=== PATIENT | female | born 1940 | race Caucasian/White ===

== ENCOUNTER → 2018-03-20 11:31 | Outpatient (REF) | payer MEDICARE, SELFPAY ==
[2018-03-20 14:07] LABS: Alanine Aminotransferase 24 U/L (12-78); Albumin Level 4.2 gm/dL (3.4-5.0); Albumin/Globulin Ratio 1.4 (1.1-1.8); Alkaline Phosphatase 93 U/L (46-116); Anion Gap 19.7 mEq/L (5-15); Aspartate Amino Transferase 19 U/L (15-37); Bilirubin,Total 0.3 mg/dL (0.2-1.0); Blood Urea Nitrogen 21 mg/dL (7-18); Calcium 9.4 mg/dL (8.5-10.1); Carbon Dioxide 21 mmol/L (21.0-32.0); Chloride 100 mmol/L (98-107); Chol/HDL Ratio 3.9 (1-3.5); Cholesterol 179 mg/dL (140-200); Creatinine,Serum 0.58 mg/dL (0.55-1.02); Estimated Glomerular Filt Rate 101 ml/min (>60); GFR (African American) 122 ML/MIN (>60); Globulin 3.1 gm/dl (1.3-3.2); Glucose 105 mg/dL (74-106); HDL Cholesterol 46 mg/dL (29-89); LDL Cholesterol 101 mg/dL (0-130); Potassium 4.7 mmoL/L (3.5-5.1); Sodium 136 mmol/L (136-145); Thyroid Stimulating Hormone 1.31 uIU/ml (0.358-3.740); Total Protein,Serum 7.3 gm/dL (6.4-8.2); Triglycerides 159 mg/dL (30-200); VLDL Cholesterol 32 mg/dL (0-40)
[2018-03-20 14:10] LABS: C-Reactive Protein < 0.2 mg/L (0.0-0.9)
[2018-03-20 14:33] LABS: Basophils % 0.5 % (0.1-2.0); Eosinophils # 0.1 K/mm3 (0.0-0.4); Eosinophils % 1.2 % (0.1-12.0); Hematocrit 43.9 % (37.0-47.0); Hemoglobin 13.6 g/dL (12.2-16.2); Lymphocytes # 0.9 K/mm3 (0.7-4.5); Lymphocytes % 13.2 K/mm3 (10-50); Mean Corpuscular HGB Conc 31.1 g/dL (31.8-35.4); Mean Corpuscular Hemoglobin 27.9 pg (27.0-31.2); Mean Corpuscular Volume 89.7 fl (81-99); Mean Platelet Volume 7.7 fl (7.4-10.4); Monocytes # 0.6 K/mm3 (0.1-1.0); Monocytes % 9.2 % (1.7-9.3); Neutrophils # 5.1 K/mm3 (1.8-7.8); Neutrophils % 75.8 % (37.0-80.0); Platelet Count 333 K/mm3 (142-424); White Blood Count 6.8 K/mm3 (4.8-10.8)
[2018-03-20 16:13] LABS: Erythrocyte Sedimentation Rate 12 mm/hr (0-30)
[2018-03-21 17:01] LABS: Folate 16.8 ng/mL (>3.0); Vitamin B12 947 pg/mL (232-1245)
== END ==
LOC: LAB.CARL 11:31
PROVIDERS: Visit Provider Emergency Medicine
DX: E78.5 Hyperlipidemia, unspecified (principal); Z79.899 Other long term (current) drug therapy
CPT/HCPCS: 80053; 80061; 82607; 82746; 84443; 85025; 85651; 86140

== ENCOUNTER 2018-06-15 14:00 | Outpatient (RCR) | payer MEDICARE, SELFPAY | END 2018-07-16 14:07 | disposition home or self-care (01) | LOC: PT 14:00 | PROVIDERS: Family Provider Family Medicine; PCP Family Medicine; Visit Provider Family Medicine | DX: M25.661 Stiffness of right knee, not elsewhere classified (principal) | CPT/HCPCS: 97110; 97116; 97140; 97163 ==

== ENCOUNTER → 2018-11-03 11:13 | Outpatient (CLI) | payer MEDICARE, SELFPAY ==
[2018-11-03 13:58] LABS: Anion Gap 14.9 mEq/L (5-15); Blood Urea Nitrogen 22 mg/dL (7-18); Calcium 9.1 mg/dL (8.5-10.1); Carbon Dioxide 25 mmol/L (21.0-32.0); Chloride 97 mmol/L (98-107); Creatinine,Serum 0.77 mg/dL (0.55-1.02); Estimated Glomerular Filt Rate 73 ml/min (>60); GFR (African American) 88 ML/MIN (>60); Glucose 116 mg/dL (74-106); Potassium 3.9 mmoL/L (3.5-5.1); Sodium 133 mmol/L (136-145)
[2018-11-03 14:17] LABS: Basophils % 0.4 % (0.1-2.0); Eosinophils # 0.1 K/mm3 (0.0-0.4); Eosinophils % 1.5 % (0.1-12.0); Hematocrit 44.2 % (37.0-47.0); Hemoglobin 13.8 g/dL (12.2-16.2); Lymphocytes # 0.7 K/mm3 (0.7-4.5); Lymphocytes % 12.5 % (10-50); Mean Corpuscular HGB Conc 31.3 g/dL (31.8-35.4); Mean Corpuscular Hemoglobin 27.9 pg (27.0-31.2); Mean Platelet Volume 7.6 fl (7.4-10.4); Monocytes # 0.3 K/mm3 (0.1-1.0); Monocytes % 6.6 % (1.7-9.3); Neutrophils # 4.1 K/mm3 (1.8-7.8); Platelet Count 346 K/mm3 (142-424); Red Blood Count 4.96 M/mm3 (4.20-5.40); Red Cell Distribution Width 14.5 % (11.5-17.5); White Blood Count 5.1 K/mm3 (4.8-10.8)
[2018-11-03 14:44] LABS: Erythrocyte Sedimentation Rate 15 mm/hr (0-30)
[2018-11-03 18:49] LABS: C-Reactive Protein < 0.2 mg/L (0.0-0.9)
== END ==
PROVIDERS: PCP Emergency Medicine; Visit Provider Emergency Medicine
DX: D64.9 Anemia, unspecified (principal)
CPT/HCPCS: 36415; 80048; 85025; 85651; 86140

== ENCOUNTER 2018-11-03 13:00 | Outpatient (RCR) | payer MEDICARE, SELFPAY | END 2018-11-26 07:47 | disposition home or self-care (01) | LOC: PT.CARL 13:00 | PROVIDERS: Visit Provider Emergency Medicine | DX: S82.002A Unspecified fracture of left patella, initial encounter for closed fracture (principal) | CPT/HCPCS: 97014; 97033; 97110; 97112; 97116; 97140; 97163; 97164; G0283 ==

== ENCOUNTER 2019-08-20 13:00 | Outpatient (RCR) | payer MEDICARE, SELFPAY | END 2019-08-20 13:05 | disposition home or self-care (01) | LOC: PT 13:00 | PROVIDERS: PCP Emergency Medicine; Visit Provider Emergency Medicine | DX: M25.661 Stiffness of right knee, not elsewhere classified (principal) | CPT/HCPCS: 97014; 97110; 97112; 97116; 97140; 97163; 97164; 97530; G0283 ==

== ENCOUNTER → 2019-10-12 10:47 | Outpatient (CLI) | payer MEDICARE, SELFPAY ==
[2019-10-12 15:14] LABS: Basophils % 0.6 % (0.1-2.0); Eosinophils # 0.1 K/mm3 (0.0-0.4); Eosinophils % 2.1 % (0.1-12.0); Hemoglobin 12.9 g/dL (12.2-16.2); Lymphocytes # 0.7 K/mm3 (0.7-4.5); Mean Corpuscular HGB Conc 32.3 g/dL (31.8-35.4); Mean Corpuscular Hemoglobin 29.1 pg (27.0-31.2); Mean Corpuscular Volume 90.2 fl (81-99); Mean Platelet Volume 8.2 fl (7.4-10.4); Monocytes # 0.3 K/mm3 (0.1-1.0); Monocytes % 7.4 % (1.7-9.3); Neutrophils # 3.1 K/mm3 (1.8-7.8); Neutrophils % 74.1 % (37.0-80.0); Platelet Count 317 K/mm3 (142-424); Red Blood Count 4.43 M/mm3 (4.20-5.40); Red Cell Distribution Width 12.8 % (11.5-17.5); White Blood Count 4.2 K/mm3 (4.8-10.8)
[2019-10-12 15:45] LABS: Alanine Aminotransferase 14 U/L (12-78); Albumin Level 3.8 gm/dL (3.4-5.0); Albumin/Globulin Ratio 1.5 (1.1-1.8); Alkaline Phosphatase 74 U/L (46-116); Anion Gap 15.4 mEq/L (5-15); Aspartate Amino Transferase 10 U/L (15-37); Bilirubin,Total 0.2 mg/dL (0.2-1.0); Blood Urea Nitrogen 22 mg/dL (7-18); Calcium 8.5 mg/dL (8.5-10.1); Carbon Dioxide 25 mmol/L (21.0-32.0); Chloride 99 mmol/L (98-107); Chol/HDL Ratio 4.3 (1-3.5); Cholesterol 166 mg/dL (140-200); Estimated Glomerular Filt Rate 81 ml/min (>60); GFR (African American) 98 ML/MIN (>60); Globulin 2.6 gm/dl (1.3-3.2); Glucose 70 mg/dL (74-106); HDL Cholesterol 39 mg/dL (29-89); LDL Cholesterol 93 mg/dL (0-130); Potassium 4.4 mmoL/L (3.5-5.1); Sodium 135 mmol/L (136-145); Thyroid Stimulating Hormone 1.06 uIU/ml (0.358-3.740); Total Protein,Serum 6.4 gm/dL (6.4-8.2); Triglycerides 172 mg/dL (30-200); VLDL Cholesterol 34 mg/dL (0-40)
[2019-10-15 06:28] LABS: Folate 13.1 ng/mL (>3.0); Vitamin B12 1192 pg/mL (232-1245)
== END ==
PROVIDERS: PCP Emergency Medicine; Visit Provider Emergency Medicine
DX: E78.5 Hyperlipidemia, unspecified (principal)
CPT/HCPCS: 36415; 80053; 80061; 82607; 82746; 84443; 85025

== ENCOUNTER → 2021-08-10 15:17 | Outpatient (CLI) | payer MEDICARE, SELFPAY ==
[2021-08-10 16:43] LABS: Basophils # 0.1 K/mm3 (0-0.2); Eosinophils # 0.1 K/mm3 (0.0-0.4); Hemoglobin 12.3 g/dL (12.2-16.2); Lymphocytes # 0.9 K/mm3 (0.7-4.5); Lymphocytes % 13.8 % (10-50); Mean Corpuscular HGB Conc 30.8 g/dL (31.8-35.4); Mean Corpuscular Hemoglobin 25.9 pg (27.0-31.2); Mean Platelet Volume 8.6 fl (7.4-10.4); Monocytes # 0.6 K/mm3 (0.1-1.0); Monocytes % 9.1 % (1.7-9.3); Neutrophils # 4.6 K/mm3 (1.8-7.8); Platelet Count 315 K/mm3 (142-424); Red Blood Count 4.75 M/mm3 (4.20-5.40); Red Cell Distribution Width 15.5 % (11.5-17.5); White Blood Count 6.2 K/mm3 (4.8-10.8)
[2021-08-10 18:14] LABS: Alanine Aminotransferase 16 U/L (12-78); Albumin Level 4.3 g/dl (3.5-5.0); Albumin/Globulin Ratio 1.7 (1.1-1.8); Alkaline Phosphatase 65 U/L (38-126); Anion Gap 15.2 mEq/L (5-15); Aspartate Amino Transferase 28 U/L (14-36); Bilirubin,Total 0.3 mg/dl (0.2-1.3); Blood Urea Nitrogen 14 mg/dl (7-17); Calcium 9.2 mg/dl (8.4-10.2); Carbon Dioxide 26 mmol/L (22.0-30.0); Chloride 98 mmol/L (98-107); Chol/HDL Ratio 4.2 (1-3.5); Cholesterol 160 mg/dl (140-200); Estimated Glomerular Filt Rate 118 ml/min (>60); GFR (African American) 143 ML/MIN (>60); Globulin 2.6 g/dL (1.3-3.2); Glucose 85 mg/dl (74-100); HDL Cholesterol 38 mg/dl (40-60); Potassium 5.2 mmoL/L (3.5-5.1); Sodium 134 mmol/L (136-145); Total Protein,Serum 6.9 g/dl (6.3-8.2); Triglycerides 180 mg/dl (30-150); VLDL Cholesterol 36 mg/dL (0-40)
[2021-08-10 18:25] LABS: Direct LDL Cholesterol 85.15 mg/dL (100-129)
[2021-08-11 14:48] LABS: Thyroid Stimulating Hormone 0.63 uIU/mL (0.465-4.68)
== END ==
PROVIDERS: Visit Provider Internal Medicine
DX: M35.01 Sjogren syndrome with keratoconjunctivitis (principal); M15.0 Primary generalized (osteo)arthritis; I10 Essential (primary) hypertension; E78.5 Hyperlipidemia, unspecified; E03.9 Hypothyroidism, unspecified
CPT/HCPCS: 80053; 80061; 84443; 85025

== ENCOUNTER 2021-09-13 13:44 | Emergency (ER) | payer MEDICARE, SELFPAY ==
[2021-09-13 14:00] VITALS: BP 136/88; PULSE 102; RESP 18; O2SAT 95
[2021-09-13 14:01] VITALS: BP 113/69; PULSE 107; RESP 18; TEMP 36.8; O2SAT 96; BMI 25.8
--- NOTE | 2021-09-13 14:08 | XR_ITS ---
PROCEDURE INFORMATION: Exam: XR Right Shoulder Exam date and time: 09/13/2021 2:08 PM Age: 81 years old Clinical indication: Pain and injury or trauma; Fall; Sprain or strain; Shoulder; Right; Additional info: Fell, RT shoulder pain TECHNIQUE: Imaging protocol: XR Right shoulder. Views: 2 or more views. COMPARISON: No relevant prior exams. FINDINGS: Bones/joints: Generalized osteopenia. Moderate narrowing of the glenohumeral joint. Mild spurring of the glenoid rim and humeral neck. Marked narrowing of the subacromial space. Moderate degeneration of the acromioclavicular joint. No fractures or dislocations. Soft tissues: Normal. No swelling or abnormal density. IMPRESSION: 1. No fractures or dislocations. 2. [id number] degenerative osteoarthritis. 3. Narrowing of the subacromial space is associated with rotator cuff pathology. If clinical concern exists, further evaluation with MRI is recommended.
--- NOTE | 2021-09-13 14:09 | XR_ITS ---
PROCEDURE INFORMATION: Exam: XR Left Shoulder Exam date and time: 09/13/2021 2:09 PM Age: 81 years old Clinical indication: Injury or trauma; Fall; Sprain or strain; Shoulder; Left; Additional info: Fell, lt shoulder pain TECHNIQUE: Imaging protocol: XR Left shoulder. Views: 2 or more views. COMPARISON: No relevant prior exams. FINDINGS: Bones/joints: Generalized osteopenia. Moderate narrowing of the glenohumeral joint. Minimal spurring of the glenoid rim and humeral neck. No fractures or dislocations. Soft tissues: Normal. No swelling or abnormal density. IMPRESSION: 1. No fractures or dislocations. 2. Mild degenerative osteoarthritis.
--- NOTE | 2021-09-13 14:10 | XR_ITS ---
PROCEDURE INFORMATION: Exam: XR Right Knee Exam date and time: 09/13/2021 2:10 PM Age: 81 years old Clinical indication: Pain and injury or trauma; Fall; Sprain or strain and swelling (edema); Patella or knee; Right; Additional info: Fell, RT knee pain TECHNIQUE: Imaging protocol: XR Right knee. Views: 1 or 2 views. COMPARISON: No relevant prior exams. FINDINGS: Bones/joints: There is a total knee arthroplasty. The prosthetic components and osseous structures are in anatomic alignment. There is no evidence of loosening or infection of the hardware. No fractures or dislocations. Soft tissues: Normal. No swelling or abnormal density. Vasculature: Mural calcification of the vasculature. IMPRESSION: Total knee arthroplasty in anatomic alignment.
--- NOTE | 2021-09-13 14:14 | PC.NURSE ---
Spoke with sally SCHMIDT for xray
[2021-09-13 14:30] VITALS: BP 122/81; PULSE 102; RESP 18; O2SAT 96
[2021-09-13 15:00] VITALS: BP 130/86; PULSE 94; RESP 18; O2SAT 96
--- NOTE | 2021-09-13 15:45 | HMH.EDGENADL ---
ED Disposition Clinical Impression: Fall Qualifiers: Encounter type: initial encounter Qualified Code(s): W19.XXXA - Unspecified fall, initial encounter Disposition: Home, Self-Care Condition on Discharge: Good Instructions: How to Prevent Falls Additional Instructions: Tylenol as needed for pain. Follow-up with your primary care provider next week. Return for any worsening of condition. Referrals: Erasmo Hadley [Primary Care Provider] - - Critical Care Critical Care Time: No Attestation: On 09/13/21, the high probability of a clinically significant, sudden or life threatening deterioration of the following system(s) required my full and direct attention, intervention and personal management. The time I documented below is in addition to time spent performing reported procedures but includes the following listed in this critical care notation. Medical Decision Making - Roel Inquiry Pt receiving controlled substance: No Vital Signs: 09/13/21 14:00 09/13/21 14:01 09/13/21 14:30 Temperature 98.2 F Temperature Source Oral Pulse Rate 102 H 102 H Pulse Rate [Left Radial] 107 H Respiratory Rate 18 18 18 Blood Pressure 136/88 122/81 Blood Pressure [Left Arm] 113/69 Blood Pressure Mean 99 90 Blood Pressure Mean [Left Arm] 83 Blood Pressure Source [Left Arm] Automatic Cuff Blood Pressure Position [Left Arm] Supine 02 Sat by Pulse Oximetry 95 96 96 Oxygen Delivery Method Room Air 09/13/21 15:00 Temperature Temperature Source Pulse Rate 94 H Pulse Rate [Left Radial] Respiratory Rate 18 Blood Pressure 130/86 Blood Pressure [Left Arm] Blood Pressure Mean 98 Blood Pressure Mean [Left Arm] Blood Pressure Source [Left Arm] Blood Pressure Position [Left Arm] 02 Sat by Pulse Oximetry 96 Oxygen Delivery Method - Lab Data Lab Results 09/13/21 16:30: WBC 9.5, RBC 4.56, Hgb 12.2, Hct 35.5 L, MCV 77.9 L, MCH 26.7 L, MCHC 34.2, RDW 15.3, Plt Count 322, MPV 8.3, Neut % (Auto) 80.5 H, Lymph % (Auto) 9.7 L, [place] % (Auto) 8.4, Eos % (Auto) 1.1, Baso % (Auto) 0.3, Neut # (Auto) 7.6, Lymph # (Auto) 0.9, [place] # (Auto) 0.8, Eos # (Auto) 0.1, Baso # (Auto) 0.0 09/13/21 16:30: Sodium 133 L, Potassium 4.0, Chloride 101, Carbon Dioxide 25, Anion Gap 11.0, BUN 16, Creatinine 0.50 L, Estimated Creat Clear 57, Estimated GFR 118, Est GFR ( Amer) 143, Glucose 113 H, Calcium 9.6, Total Bilirubin 0.3, AST 63 H, ALT 28, Alkaline Phosphatase 76, Total Creatine Kinase 895 H*, Total Protein 7.0, Albumin 4.3, Globulin 2.7, Albumin/Globulin Ratio 1.6 09/13/21 17:13: Urine Color Yellow, Urine Appearance Clear, Urine pH 6.0, Ur Specific [place] 1.025, Urine Protein Negative, Urine Glucose (UA) Negative, Urine Ketones Negative, Urine Blood 1+, Urine Nitrate Negative, Urine Bilirubin Negative, Urine Urobilinogen 0.2, Ur Leukocyte Esterase 1+ A, Urine RBC Occasional, Urine WBC 3-5, Ur Squamous Epith Cells Occasional, Urine Bacteria Trace Result diagrams: 09/13/21 16:30 09/13/21 16:30 Orders (Tests/Meds): ED MEDICATIONS Discontinued Medications Generic Name Dose Route Start Last Admin Trade Name Freq PRN Reason Stop Dose Admin Sodium Chloride 1,000 ml 09/13/21 17:20 09/13/21 17:49 Sodium Chloride 0.9% 1000ml Bag IV 09/13/21 17:21 1,000 ml BOLUS ONE Administration ORDERS Category Date Time Status Urine Culture Stat Micro 09/13/21 17:13 Received - Radiology Data #1 Image(s): Chest, Shoulder (bilateral), Pelvis, Knee Image Reviewed: Yes I have reviewed radiologist's interpretation PROCEDURE INFORMATION: Exam: XR Pelvis Exam date and time: 09/13/2021 3:59 PM Age: 81 years old Clinical indication: Injury or trauma; Fall; Blunt trauma (contusions or hematomas); Bilateral; Pelvic region TECHNIQUE: Imaging protocol: XR pelvis. Views: 1 or 2 view. COMPARISON: [facility] MRI-LOW EXT ANY JOINT W/O-LT 08/17/2015 9:12 AM FINDINGS: Bones/joints: Generalized
--- NOTE | 2021-09-13 15:59 | XR_ITS ---
PROCEDURE INFORMATION: Exam: XR Pelvis Exam date and time: 09/13/2021 3:59 PM Age: 81 years old Clinical indication: Injury or trauma; Fall; Blunt trauma (contusions or hematomas); Bilateral; Pelvic region TECHNIQUE: Imaging protocol: XR pelvis. Views: 1 or 2 view. COMPARISON: [facility] MRI-LOW EXT ANY JOINT W/O-LT 08/17/2015 9:12 AM FINDINGS: Bones/joints: Generalized osteopenia. Moderately severe degenerative changes of the right hip joint. Moderate degenerative changes of the left hip joint. No fractures or dislocations. Soft tissues: Unremarkable. No swelling or abnormal density. IMPRESSION: 1. No fractures or dislocations. 2. Degenerative changes of both hip joints, worse on the right.
--- NOTE | 2021-09-13 15:59 | CT_ITS ---
PROCEDURE INFORMATION: Exam: CT Head Without Contrast Exam date and time: 09/13/2021 3:59 PM Age: 81 years old Clinical indication: Injury or trauma; Fall; Blunt trauma (contusions or hematomas); Consciousness not specified TECHNIQUE: Imaging protocol: Computed tomography of the head without contrast. Radiation optimization: All CT scans at this facility use at least one of these dose optimization techniques: automated exposure control; mA and/or kV adjustment per patient size (includes targeted exams where dose is matched to clinical indication); or iterative reconstruction. COMPARISON: No relevant prior exams. FINDINGS: Brain: No acute changes. No hemorrhage or evidence of acute ischemia. No edema. No mass or mass effect. Patchy decreased attenuation in the periventricular white matter. Prominence of the sulci over both convexities. No abnormal extra-axial fluid collections. Cerebral ventricles: Mild prominence secondary to volume loss. Otherwise, no acute change. Paranasal sinuses: Visualized sinuses are unremarkable. No fluid levels. Mastoid air cells: Visualized mastoid air cells are well aerated. Bones/joints: Unremarkable. No acute fracture. Soft tissues: Unremarkable. IMPRESSION: 1. No acute intracranial changes. 2. Generalized cerebral atrophy. 3. Chronic microvascular ischemia.
--- NOTE | 2021-09-13 15:59 | CT_ITS ---
PROCEDURE INFORMATION: Exam: CT Cervical Spine Without Contrast Exam date and time: 09/13/2021 3:59 PM Age: 81 years old Clinical indication: Injury or trauma; Fall; Blunt trauma TECHNIQUE: Imaging protocol: Computed tomography images of the cervical spine without contrast. Radiation optimization: All CT scans at this facility use at least one of these dose optimization techniques: automated exposure control; mA and/or kV adjustment per patient size (includes targeted exams where dose is matched to clinical indication); or iterative reconstruction. COMPARISON: No relevant prior exams available. FINDINGS: Bones/joints: No fractures. Normal alignment. Hypertrophy and degeneration of the facet joints. Discs/Spinal canal/Neural foramina: Mild narrowing of the C5-C6 disc space. Calcification in the disc annulus. Marked narrowing of the C6-C7 disc space. Associated marginal endplate osteophytes. Lungs: Lung apices are normal. Soft tissues: Unremarkable. IMPRESSION: 1. No fractures or dislocations. 2. Degenerative disc disease. 3. Degenerative facet joint arthropathy.
--- NOTE | 2021-09-13 15:59 | XR_ITS ---
PROCEDURE INFORMATION: Exam: XR Chest Exam date and time: 09/13/2021 3:59 PM Age: 81 years old Clinical indication: Injury or trauma; Fall; Blunt trauma (contusions or hematomas) TECHNIQUE: Imaging protocol: XR of the chest. Views: 4 or more views. COMPARISON: No relevant prior exams. FINDINGS: Lungs: Unremarkable. No consolidation. Pleural spaces: Unremarkable. No pleural effusion. No pneumothorax. Heart/Mediastinum: Unremarkable. No cardiomegaly. Bones/joints: Unremarkable. IMPRESSION: No acute cardiopulmonary disease.
[2021-09-13 16:43] LABS: Basophils % 0.3 % (0.1-2.0); Eosinophils # 0.1 K/mm3 (0.0-0.4); Eosinophils % 1.1 % (0.1-12.0); Hematocrit 35.5 % (37.0-47.0); Hemoglobin 12.2 g/dL (12.2-16.2); Lymphocytes # 0.9 K/mm3 (0.7-4.5); Lymphocytes % 9.7 % (10-50); Mean Corpuscular HGB Conc 34.2 g/dL (31.8-35.4); Mean Corpuscular Hemoglobin 26.7 pg (27.0-31.2); Mean Corpuscular Volume 77.9 fl (81-99); Mean Platelet Volume 8.3 fl (7.4-10.4); Monocytes # 0.8 K/mm3 (0.1-1.0); Monocytes % 8.4 % (1.7-9.3); Neutrophils # 7.6 K/mm3 (1.8-7.8); Neutrophils % 80.5 % (37.0-80.0); Platelet Count 322 K/mm3 (142-424); Red Blood Count 4.56 M/mm3 (4.20-5.40); Red Cell Distribution Width 15.3 % (11.5-17.5); White Blood Count 9.5 K/mm3 (4.8-10.8)
[2021-09-13 16:52] LABS: Alanine Aminotransferase 28 U/L (12-78); Albumin Level 4.3 g/dl (3.5-5.0); Albumin/Globulin Ratio 1.6 (1.1-1.8); Alkaline Phosphatase 76 U/L (38-126); Aspartate Amino Transferase 63 U/L (14-36); Bilirubin,Total 0.3 mg/dl (0.2-1.3); Blood Urea Nitrogen 16 mg/dl (7-17); Calcium 9.6 mg/dl (8.4-10.2); Carbon Dioxide 25 mmol/L (22.0-30.0); Chloride 101 mmol/L (98-107); Creatine Kinase 895 U/L (30-135); Creatinine Clearance Estimated 57 mL/min (50-200); Estimated Glomerular Filt Rate 118 ml/min (>60); GFR (African American) 143 ML/MIN (>60); Globulin 2.7 g/dL (1.3-3.2); Glucose 113 mg/dl (74-100); Sodium 133 mmol/L (136-145)
--- NOTE | 2021-09-13 17:00 | PC.NURSE ---
PT BACK FROM CT
[2021-09-13 17:17] LABS: Microscopic, Urine URINE MICROSCOPIC (MICROSCOPIC)
[2021-09-13 17:40] LABS: Appearance,Urine CLEAR (Clear); Bilirubin,Urine Negative (Negative); Blood, Urine 1+ (Negative); Color,Urine YELLOW (Yellow); Glucose,Urine (UA) Negative (Negative); Ketones,Urine Negative (Negative); Leukocyte Esterase,Urine 1+ (Negative); Nitrate,Urine Negative (Negative); Protein,Urine Negative (Negative); Specific Gravity, Urine 1.025 (1.005-1.030); Urobilinogen,Urine 0.2 EU/dl (0.2)
[2021-09-13 18:02] LABS: Bacteria,Urine Trace /lpf; RBC,Urine Occasional #/hpf (0-3); Squamous Epithelial Cell,Urine Occasional #/hpf (0-5)
[2021-09-13 19:12] VITALS: BP 163/91; PULSE 97; RESP 15; TEMP 36.1; O2SAT 967
== END 2021-09-13 19:28 | disposition home or self-care (01) ==
PROVIDERS: Emergency Provider Emergency Medicine; PCP Internal Medicine
DX: S80.211A Abrasion, right knee, initial encounter (principal); S40.012A Contusion of left shoulder, initial encounter; S40.011A Contusion of right shoulder, initial encounter; S20.213A Contusion of bilateral front wall of thorax, initial encounter; S10.93XA Contusion of unspecified part of neck, initial encounter; W01.0XXA Fall on same level from slipping, tripping and stumbling without subsequent striking against object, initial encounter; Y92.019 Unspecified place in single-family (private) house as the place of occurrence of the external cause; N30.00 Acute cystitis without hematuria
CPT/HCPCS: 70450; 71045; 72125; 72170; 73030; 73560; 80053; 81001; 82550; 85025; 87086; 87088; 87186; 96365; 99282

== ENCOUNTER 2021-09-27 11:02 | Observation (INO) | payer MEDICARE, SELFPAY ==
[2021-09-27] VITALS (16 sets, daily range): BP systolic 113–159; BP diastolic 78–98; PULSE 85–108; RESP 16–23; TEMP 36.4–37; O2SAT 95–100; BMI 25.8; BMI 26.8
--- NOTE | 2021-09-27 11:07 | CT_ITS ---
PROCEDURE INFORMATION: Exam: CT Head Without Contrast Exam date and time: 09/27/2021 11:07 AM Age: 81 years old Clinical indication: Altered mental status/memory loss; Additional info: Reported confusion TECHNIQUE: Imaging protocol: Computed tomography of the head without contrast. Radiation optimization: All CT scans at this facility use at least one of these dose optimization techniques: automated exposure control; mA and/or kV adjustment per patient size (includes targeted exams where dose is matched to clinical indication); or iterative reconstruction. COMPARISON: CT HEAD/BRAIN WO CON 09/13/2021 4:37 PM FINDINGS: Brain: There is no acute intracranial hemorrhage or mass effect. Moderate diffuse volume loss is within the range of normal for patient age. There are small vessel ischemic changes within the periventricular and subcortical white matter, but the normal sherman/white matter delineation is maintained. Cerebral ventricles: Prominence of the ventricular system is commensurate with volume loss. Paranasal sinuses: Visualized sinuses are unremarkable. No fluid levels. Mastoid air cells: Visualized mastoid air cells are well aerated. Bones/joints: Unremarkable. No acute fracture. Soft tissues: Unremarkable. IMPRESSION: No acute hemorrhage or edema.
--- NOTE | 2021-09-27 11:18 | ECG_ITS ---
APPROVED REPORT Exam: Resting ECG HR:97 bpm ECG Measurements Heart Rate 97 AXES IN 174 P 22 QRSd 68 QRS 26 QT 364 T 67 QTc 462 Conclusion Normal sinus rhythm Normal ECG Electronically signed by : Issa Zavaleta MD 09/28/2021 12:36:52
[2021-09-27 11:22] LABS: Basophils % 0.5 % (0.1-2.0); Eosinophils # 0.2 K/mm3 (0.0-0.4); Eosinophils % 2.1 % (0.1-12.0); Hematocrit 37.5 % (37.0-47.0); Hemoglobin 11.9 g/dL (12.2-16.2); Lymphocytes # 0.6 K/mm3 (0.7-4.5); Lymphocytes % 7.8 % (10-50); Mean Corpuscular HGB Conc 31.7 g/dL (31.8-35.4); Mean Corpuscular Hemoglobin 25.7 pg (27.0-31.2); Mean Corpuscular Volume 80.9 fl (81-99); Mean Platelet Volume 7.6 fl (7.4-10.4); Monocytes # 0.5 K/mm3 (0.1-1.0); Monocytes % 5.6 % (1.7-9.3); Neutrophils # 6.9 K/mm3 (1.8-7.8); Neutrophils % 83.9 % (37.0-80.0); Platelet Count 392 K/mm3 (142-424); Red Blood Count 4.64 M/mm3 (4.20-5.40); Red Cell Distribution Width 15.6 % (11.5-17.5); White Blood Count 8.2 K/mm3 (4.8-10.8)
[2021-09-27 11:26] LABS: Alanine Aminotransferase 20 U/L (12-78); Albumin/Globulin Ratio 1.4 (1.1-1.8); Alkaline Phosphatase 76 U/L (38-126); Aspartate Amino Transferase 28 U/L (14-36); Bilirubin,Total 0.2 mg/dl (0.2-1.3); Blood Urea Nitrogen 18 mg/dl (7-17); Calcium 9.2 mg/dl (8.4-10.2); Carbon Dioxide 24 mmol/L (22.0-30.0); Chloride 99 mmol/L (98-107); Creatinine Clearance Estimated 57 mL/min (50-200); Estimated Glomerular Filt Rate 96 ml/min (>60); GFR (African American) 116 ML/MIN (>60); Globulin 2.8 g/dL (1.3-3.2); Glucose 150 mg/dl (74-100); Sodium 133 mmol/L (136-145); Total Protein,Serum 6.8 g/dl (6.3-8.2)
--- NOTE | 2021-09-27 11:29 | HMH.EDGENADL ---
ED Disposition Clinical Impression: Weakness UTI (urinary tract infection) Qualifiers: Urinary tract infection type: acute cystitis Hematuria presence: without hematuria Qualified Code(s): N30.00 - Acute cystitis without hematuria Disposition: Admitted as Observation Condition on Discharge: Fair Referrals: Erasmo Hadley [Primary Care Provider] - - Critical Care Critical Care Time: No Attestation: On 09/27/21, the high probability of a clinically significant, sudden or life threatening deterioration of the following system(s) required my full and direct attention, intervention and personal management. The time I documented below is in addition to time spent performing reported procedures but includes the following listed in this critical care notation. Medical Decision Making - Medical Records Medical records reviewed: Yes: I reviewed the patient's medical records. MR Comment: Reviewed emergency department note from visit on 09/13/2021 for fall. Seen by me. Had an extensive work-up including CT scan of head and cervical spine. Had mildly elevated CPK in the 800s from having laying on the floor. Otherwise work-up unremarkable. Reviewed urine culture result from 09/13/2021. E. coli and Serratia marcescens, both low colony counts. Both sensitive to Levaquin. - Roel Inquiry Pt receiving controlled substance: No Vital Signs: 09/27/21 11:02 09/27/21 11:41 09/27/21 12:30 Temperature 98.6 F Temperature Source Oral Pulse Rate 89 86 86 Pulse Rate [Right] 94 H Respiratory Rate 16 23 17 Blood Pressure 146/84 H 152/78 H 135/81 Blood Pressure [Right Arm] 142/82 H Blood Pressure Mean 110 Blood Pressure Mean [Right Arm] 102 Blood Pressure Source [Right Arm] Automatic Cuff Blood Pressure Position [Right Arm] Sitting 02 Sat by Pulse Oximetry 97 95 96 Oxygen Delivery Method Room Air 09/27/21 13:01 09/27/21 13:30 09/27/21 14:00 Temperature Temperature Source Pulse Rate 85 86 95 H Pulse Rate [Right] Respiratory Rate 17 16 18 Blood Pressure 154/82 H 153/85 H 157/97 H Blood Pressure [Right Arm] Blood Pressure Mean 116 107 117 Blood Pressure Mean [Right Arm] Blood Pressure Source [Right Arm] Blood Pressure Position [Right Arm] 02 Sat by Pulse Oximetry 95 99 98 Oxygen Delivery Method 09/27/21 14:31 09/27/21 15:01 09/27/21 15:30 Temperature Temperature Source Pulse Rate 92 H 90 108 H Pulse Rate [Right] Respiratory Rate 16 18 18 Blood Pressure 123/82 114/81 113/80 Blood Pressure [Right Arm] Blood Pressure Mean 95 92 87 Blood Pressure Mean [Right Arm] Blood Pressure Source [Right Arm] Blood Pressure Position [Right Arm] 02 Sat by Pulse Oximetry 97 97 98 Oxygen Delivery Method 09/27/21 16:00 09/27/21 16:31 Temperature Temperature Source Pulse Rate 102 H 96 H Pulse Rate [Right] Respiratory Rate 16 18 Blood Pressure 154/95 H 154/94 H Blood Pressure [Right Arm] Blood Pressure Mean 105 98 Blood Pressure Mean [Right Arm] Blood Pressure Source [Right Arm] Blood Pressure Position [Right Arm] 02 Sat by Pulse Oximetry 97 100 Oxygen Delivery Method - Lab Data Lab Results 09/27/21 10:45: WBC 8.2, RBC 4.64, Hgb 11.9 L, Hct 37.5, MCV 80.9 L, MCH 25.7 L, MCHC 31.7 L, RDW 15.6, Plt Count 392, MPV 7.6, Neut % (Auto) 83.9 H, Lymph % (Auto) 7.8 L, [place] % (Auto) 5.6, Eos % (Auto) 2.1, Baso % (Auto) 0.5, Neut # (Auto) 6.9, Lymph # (Auto) 0.6 L, [place] # (Auto) 0.5, Eos # (Auto) 0.2, Baso # (Auto) 0.0 09/27/21 10:45: Sodium 133 L, Potassium 4.0, Chloride 99, Carbon Dioxide 24, Anion Gap 14.0, BUN 18 H, Creatinine 0.60, Estimated Creat Clear 57, Estimated GFR 96, Est GFR ( Amer) 116, Glucose 150 H, Calcium 9.2, Total Bilirubin 0.2, AST 28, ALT 20, Alkaline Phosphatase 76, Troponin I < 0.01, Total Protein 6.8, Albumin 4.0, Globulin 2.8, Albumin/Globulin Ratio 1.4 09/27/21 10:45: Total Creatine Kinase 64 09/27/21 13:03: Urine Color Yellow
--- NOTE | 2021-09-27 11:35 | XR_ITS ---
PROCEDURE INFORMATION: Exam: XR Chest Exam date and time: 09/27/2021 11:35 AM Age: 81 years old Clinical indication: Other: Weakness; Additional info: AMS, weakness TECHNIQUE: Imaging protocol: XR of the chest. Views: 1 view. COMPARISON: CR XR CHEST AP 09/13/2021 4:41 PM FINDINGS: Lungs: Unremarkable. No consolidation. Pleural spaces: Unremarkable. No pleural effusion. No pneumothorax. Heart/Mediastinum: Unremarkable. No cardiomegaly. Bones/joints: There is a thoracic dextroscoliosis. IMPRESSION: No acute findings.
[2021-09-27 11:41] LABS: Troponin I < 0.01 ng/ml (0.00-0.034)
[2021-09-27 13:11] LABS: Microscopic, Urine URINE MICROSCOPIC (MICROSCOPIC)
[2021-09-27 13:14] LABS: Appearance,Urine CLEAR (Clear); Bilirubin,Urine Negative (Negative); Blood, Urine 2+ (Negative); Color,Urine YELLOW (Yellow); Glucose,Urine (UA) Negative (Negative); Ketones,Urine Negative (Negative); Leukocyte Esterase,Urine 3+ (Negative); Nitrate,Urine POSITIVE (Negative); Protein,Urine Negative (Negative); Urobilinogen,Urine 0.2 EU/dl (0.2)
[2021-09-27 13:55] LABS: Bacteria,Urine 1+ /lpf; Squamous Epithelial Cell,Urine Occasional #/hpf (0-5); WBC,Urine 20-50 #/hpf (0-3)
[2021-09-27 14:11] LABS: Creatine Kinase 64 U/L (30-135)
[2021-09-27 16:10] LABS: Coronavirus 19, PCR Not Detected (NotDetected); Influenza A, PCR Not Detected (NotDetected); Influenza B, PCR Not Detected (NotDetected)
--- NOTE | 2021-09-27 16:26 | PC.NURSE ---
Called Dr. Zavaleta office. Advised he was in a room and would call us back when he was available.
--- NOTE | 2021-09-27 16:34 | PC.NURSE ---
speaking with Dr. Zavaleta
--- NOTE | 2021-09-27 16:39 | PC.NURSE ---
Notified house of admission
[2021-09-27 17:43] LABS: Troponin I < 0.01 ng/ml (0.00-0.034)
--- NOTE | 2021-09-27 18:30 | PC.NURSE ---
pt arrived to the floor at this time
[2021-09-28 04:00] VITALS: BP 142/84; PULSE 92; RESP 16; TEMP 36.5; O2SAT 95
--- NOTE | 2021-09-28 04:32 | PC.NURSE ---
pt has rested well t/o shift, has remained on room air with O2 sats at 95%, no complaints of pain, voiding per purewick and 2 bowel movements this shift
[2021-09-28 05:08] VITALS: BMI 26.0
--- NOTE | 2021-09-28 07:27 | PC.NURSE ---
pt is poor historian on medications, stated that she takes the medications prescribed to her, that is all she could tell me
--- NOTE | 2021-09-28 07:36 | HMH.PHAVTE ---
[facility] Pharmacy VTE Monitoring - Patient Demographics Admission date: 09/28/21 Report Date: 09/28/21 Time: 07:36 Allergies/Adverse Reactions: Patient Allergies No Known Allergies Allergy (Verified 09/13/21 14:01) Height: 1.78 m Weight: 82.5 kg Patient Problems: Current Active Problems UTI (urinary tract infection) (Acute) Weakness (Acute) - VTE Risk Labs: VTE Related Lab Results Hgb 11.9 g/dL (12.2-16.2) L 09/27/21 10:45 Hct 37.5 % (37.0-47.0) 09/27/21 10:45 Plt Count 392 K/mm3 (142-424) 09/27/21 10:45 BUN 18 mg/dl (7-17) H 09/27/21 10:45 Creatinine 0.60 mg/dl (0.52-1.04) 09/27/21 10:45 Estimated Creat Clear 57 mL/min (50-200) 09/27/21 10:45 Was VTE Risk Assessment Performed: Yes VTE Score: 8 VTE Risk Level: Moderate Risk Clinical Trial Participant: No - Prophylaxis VTE Prophylaxis Ordered?: Yes Types of VTE Prophylaxis: TEDS Knee High
[2021-09-28 08:00] VITALS: BP 145/95; PULSE 97; RESP 18; TEMP 36.4; O2SAT 95; O2SAT 98
--- NOTE | 2021-09-28 09:17 | HMH.HP ---
*Admission Date: 09/27/21 *Chief complaint: Frequent falls, confusion *History of present illness: 81-year-old white female, who has been for the past year and a half, who has limited functional capacity because of a right-sided knee contracture deformity based on her report of an operative injury from knee replacement surgery several years ago in which her quadriceps tendon was cut. She unfortunately is unable to extend her right leg completely and has had frequent falls. A couple of weeks ago she was found to have a complex urinary tract infection with Serratia and E. coli, and unfortunately seems to have not recovered well from this and has had some abdominal pain, confusion and worsening falls. She came to the emergency department yesterday afternoon, continued to have some confusion and inability to walk on her own, and was found to have presence of a urinary tract infection with hematuria, pyuria and abdominal discomfort. Admitted to hospital for intravenous antibiotics, further evaluation of her home safety, etc. [facility] History I have reviewed the patient's past medical history: Yes Medical History: Reports:: Hyperlipidemia, Hypertension Denies:: Cancer, Diabetes Mellitus Type 1, Diabetes Mellitus Type 2, MRSA *Have you ever received a pneumonia vaccine?: No *Have you received a flu vaccine this season?: No Other Medical History: Reports: Arthritis Comment:: Chronic right knee contracture Laterality Cases: Bilateral: Arthroscopy Knee Other Surgeries: Yes: Appendectomy Amputation: No Fractures: No - *Social History Last grade of school completed: Advanced degree Smoking Status: Never smoker Alcohol Intake: never *Occupational Status:: retired *Travel in the last 8 weeks: None Family Hx:: No significant family history Review of Systems - *Neurologic Denies abnormal speech, Denies confusion, Denies dizziness, Denies headache(s), Denies numbness, Denies weakness Meds Home Medications Medication Instructions Recorded Confirmed Type Dexlansoprazole [Dexilant] 60 mg PO DAILY 09/27/21 09/27/21 History Temazepam [Restoril] 15 mg PO HS 09/27/21 09/27/21 History Allergies Allergy/AdvReac Type Severity Reaction Status Date / Time No Known Allergies Allergy Verified 09/13/21 14:01 Exam Vital signs and Labs for Last 24 Hours: Temp Pulse Resp BP Pulse Ox 97.7 F 92 H 16 142/84 H 95 09/28/21 04:00 09/28/21 04:00 09/28/21 04:00 09/28/21 04:00 09/28/21 04:00 Laboratory Results - last 24 hr 09/27/21 10:45: WBC 8.2, RBC 4.64, Hgb 11.9 L, Hct 37.5, MCV 80.9 L, MCH 25.7 L, MCHC 31.7 L, RDW 15.6, Plt Count 392, MPV 7.6, Neut % (Auto) 83.9 H, Lymph % (Auto) 7.8 L, [place] % (Auto) 5.6, Eos % (Auto) 2.1, Baso % (Auto) 0.5, Neut # (Auto) 6.9, Lymph # (Auto) 0.6 L, [place] # (Auto) 0.5, Eos # (Auto) 0.2, Baso # (Auto) 0.0 09/27/21 10:45: Sodium 133 L, Potassium 4.0, Chloride 99, Carbon Dioxide 24, Anion Gap 14.0, BUN 18 H, Creatinine 0.60, Estimated Creat Clear 57, Estimated GFR 96, Est GFR ( Amer) 116, Glucose 150 H, Calcium 9.2, Total Bilirubin 0.2, AST 28, ALT 20, Alkaline Phosphatase 76, Troponin I < 0.01, Total Protein 6.8, Albumin 4.0, Globulin 2.8, Albumin/Globulin Ratio 1.4 09/27/21 10:45: Total Creatine Kinase 64 09/27/21 13:03: Urine Color Yellow, Urine Appearance Clear, Urine pH 6.0, Ur Specific [place] 1.020, Urine Protein Negative, Urine Glucose (UA) Negative, Urine Ketones Negative, Urine Blood 2+, Urine Nitrate Positive, Urine Bilirubin Negative, Urine Urobilinogen 0.2, Ur Leukocyte Esterase 3+ A, Urine RBC 5-10, Urine WBC 20-50, Ur Squamous Epith Cells Occasional, Urine Bacteria 1+ 09/27/21 15:47: SARS-CoV-2 (PCR) Not detected, Influenza A Untype (PCR) Not detected, Influenza Type B (PCR) Not detected 09/27/21 16:48: Troponin I < 0.01 I & O for Last 24 hours: Intake & Output 09/25/21 09/26/21 09/27/21 09/28/21 11:59 11:59 11:59 11:59 Intake Total 933 / 933 Output Total 700 / 700 Ba
--- NOTE | 2021-09-28 09:21 | SW/DCPLANNER ---
Addendum entered by Jemma Mora 10/02/21 07:26: PATIENT HAS BEEN APPROVED TO GO TO [facility] TODAY FOR SKILLED REHAB SERVICES.. Addendum entered by Yuridia Woods 09/28/21 12:00: Patient is agreeable to placement at this time. [facility] has stated that she currently does not have any beds available. Kathleen hutchins/ [facility] is reviewing patient information and stated she could potentially accept this patient tomorrow. I will follow up with patients MD charles and Kathleen ARSHDA. Original Note: I spoke with patients daughter (Manisha) regarding discharge plans once patient is medically stable for discharge. Daughter stated that she has been speaking with her sister regarding placement for her mother: both are agreeable for placement. I explained to daughter that patient must be willing to go to placement: daughters will be speaking with patient this AM regarding placement. Manisha is interested in placement at [facility]: not accepting any patients at this time. [facility] I will follow up with facilities once information is reviewed. Patient is stable for discharge once disposition is solved.
--- NOTE | 2021-09-28 11:46 | HMH.OTEV ---
OT Inpatient Evaluation Rehab OT IP Evaluation Start: 09/28/21 09:15 Freq: ONCE Status: Complete Protocol: [facility]21 [facility] (Rec: 09/28/21 11:46 [facility] [id number]) Rehab OT IP Assessment Subjective History Pt oriented x 3 on arrival. Pt agreeable to engage in therapy evaluation. Pt was admtited on 09/27/21 due to frequent falls and confusion. The following information was copied from PCP history and physical report: 81-year-old white female, who has been for the past year and a half, who has limited functional capacity because of a right-sided knee contracture deformity based on her report of an operative injury from knee replacement surgery several years ago in which her quadriceps tendon was cut. She unfortunately is unable to extend her right leg completely and has had frequent falls. A couple of weeks ago she was found to have a complex urinary tract infection with Serratia and E. coli, and unfortunately seems to have not recovered well from this and has had some abdominal pain, confusion and worsening falls. She came to the emergency department yesterday afternoon , continued to have some confusion and inability to walk on her own, and was found to have presence of a urinary tract infection with hematuria, pyuria and abdominal discomfort. Admitted to hospital for intravenous antibiotics, further evaluation of her home safety, etc. Pt has a past medical history of Hyperlipidemia,
--- NOTE | 2021-09-28 11:47 | HMH.PTEV ---
Physical Therapy Evaluation Rehab PT IP Evaluation Start: 09/28/21 09:15 Freq: ONCE Status: Active Protocol: Document 09/28/21 11:37 [facility] (Rec: 09/28/21 11:46 [facility] [id number]) Subjective/History History History Pt admitted as 81 YO female with UTI and generalized weakness, as well as fall at home out of bed. Subjective Subjective Pt reports RLE (sorenson area) pain d/t chronic LBP and prolonged time in bed since UTI, fall, weakness. Rehab PT IP Eval Objective Appearance Patient Behavior Appropriate Patient Orientation Person,Place,Time,Name,Age, Birthday Difficulty following instructions none Speech Pattern Appropriate Ambulation Patient Able to Ambulate No Balance Sitting Balance Steady, safe Dynamic Sitting Balance Ability Normal Transfers Sit to Stand Bed Transfer Ability Maximum x 2 (75% assist) Pain Right Sorenson Pain Intensity 5 ROM RUE PT ROM Status WFL LUE PT ROM Status WFL LLE PT ROM Status WFL RLE PT ROM Status ABN Abnormal ROM Comment limited right knee AROM secondary to failed TKA MMT RUE PT MMT WFL LUE PT MMT WFL LLE PT MMT WFL RLE PT MMT ABN Abnormal MMT Grade limited (3-/5) Rehab PT IP prob,goals,plan Problems Date of Evaluation: 09/28/21 PT IP Problems Bed Mobility,Transfers,Self care,Safety Rehab Potential Rehab Potential Fair Equipment Needs Assistive Devices Wheelchair Plan PT Intervention Plan Bed Mobility,Transfers,Self care,Safety,Therapeutic Exercise PT Plan Frequency BID Duration LOS Discharge Goals Bed Transfer Ability Maximum x 1 (75% assist) Discharge Plan PT Discharge Plan Pt to D/C to rehab facility or SNF to continue work on strengthening for bed to chair /WC T/F's for improved safety w/return to home. G -code Required No Eval Complexity Eval Charge Codes 44598 - Moderate Complexity PHYSICIAN CERTIFICATI
[2021-09-28 16:00] VITALS: BP 161/85; PULSE 96; RESP 16; TEMP 36.5; O2SAT 93
[2021-09-28 19:55] VITALS: BP 125/84; PULSE 92; RESP 22; TEMP 36.7; O2SAT 94
[2021-09-29 04:00] VITALS: BP 166/81; PULSE 85; RESP 16; TEMP 36.7; O2SAT 94
[2021-09-29 05:03] VITALS: BMI 25.6
[2021-09-29 07:53] VITALS: BP 160/98; PULSE 101; RESP 18; TEMP 36.8; O2SAT 94
[2021-09-29 08:00] VITALS: O2SAT 94
--- NOTE | 2021-09-29 08:35 | P.PN_ITS ---
Internal Medicine - PN: Subj *Date: 09/29/21 *Time: 08:35 Interval history: Patient is pleasant and talkative, alert. I reviewed care management plan with her and she is agreeable. Exam Vital signs and Labs for Last 24 Hours: Temp Pulse Resp BP Pulse Ox 98.2 F 101 H 18 160/98 H 94 L 09/29/21 07:53 09/29/21 07:53 09/29/21 07:53 09/29/21 07:53 09/29/21 07:53 I & O for Last 24 hours: Intake & Output 09/26/21 09/27/21 09/28/21 09/29/21 11:59 11:59 11:59 11:59 Intake Total 1053 / 1053 420 / 420 Output Total 1200 / 1200 1250 / 1250 Balance -147 / -147 -830 / -830 Weight 180 lb 181 lb 14.102 oz 179 lb 3.773 oz Microbiology Reports for the Last 24 Hours: Microbiology 09/27/21 13:03 Urine,Clean Catch Urine Culture - Preliminary Narrative: Heart rate regular, lungs clear. Abdomen soft. Knee exam and lower extremity exam unchanged. She is alert and pleasant. C ranial nerves intact Assessment and Plan (1) Flexion contracture of right knee Status: Acute Category: Medical Code(s): M24.561 - Contracture, right knee (2) Frequent falls Status: Acute Category: Medical Code(s): R29.6 - Repeated falls (3) UTI (urinary tract infection) Status: Acute Qualifiers: Urinary tract infection type: acute cystitis Hematuria presence: without hematuria Qualified Code(s): N30.00 - Acute cystitis without hematuria Category: Medical Code(s): N39.0 - Urinary tract infection, site not specified (4) Fall Status: Acute Qualifiers: Encounter type: initial encounter Qualified Code(s): W19.XXXA - Unspecified fall, initial encounter Category: Medical Code(s): W19.XXXA - Unspecified fall, initial encounter - Assessment and plan all Dx Assessment and Plan for all problems:: Continue current therapy. Await final culture results. Patient may have a bed at skilled care facility today or tomorrow. Transfer when available.
[2021-09-29 15:29] VITALS: BP 109/57; PULSE 90; RESP 16; TEMP 36.8; O2SAT 93
--- NOTE | 2021-09-29 17:15 | PC.NURSE ---
Pt has done fine this shift. Pt has c/o BARRY x1 and has been medicated per MAR. Purwick remains in place, pt is urinating clear, dark yellow urine. Pt has been encouraged to get out of bed and up to chair, but pt refuses. No other acute changes or complaints, will continue to monitor.
[2021-09-29 20:00] VITALS: BP 110/59; PULSE 74; RESP 16; TEMP 36.8; O2SAT 93
--- NOTE | 2021-09-29 21:48 | PC.NURSE ---
Helped brush teeth. Brought 2 warm blankets
[2021-09-30 04:00] VITALS: BP 152/83; PULSE 82; RESP 13; TEMP 37.1; O2SAT 94
[2021-09-30 05:26] VITALS: BMI 26.8
--- NOTE | 2021-09-30 07:04 | PC.NURSE ---
Patient slept through night. VSS. Denies pain. Incontinent of urine, utlizing purewick. Turned q2h as patient allows for pressure reduction. Voices no complaints this shift.
--- NOTE | 2021-09-30 07:19 | HMH.ACPN2 ---
Internal Medicine - PN: Subj *Date: 09/30/21 *Time: 07:19 Interval history: Patient is pleasant, talkative, in good spirits. Had a lot of heartburn yesterday after eating some Japanese food her family brought in, we administered Tums and Pepcid and this is resolved her situation. Exam Vital signs and Labs for Last 24 Hours: Temp Pulse Resp BP Pulse Ox 98.8 F 82 13 152/83 H 94 L 09/30/21 04:00 09/30/21 04:00 09/30/21 04:00 09/30/21 04:00 09/30/21 04:00 I & O for Last 24 hours: Intake & Output 09/27/21 09/28/21 09/29/21 09/30/21 11:59 11:59 11:59 11:59 Intake Total 1053 / 1053 420 / 420 1560 / 1560 Output Total 1200 / 1200 1250 / 1250 2250 / 2250 Balance -147 / -147 -830 / -830 -690 / -690 Weight 180 lb 181 lb 14.102 oz 179 lb 3.773 oz 187 lb 2.759 oz Microbiology Reports for the Last 24 Hours: Microbiology 09/27/21 13:03 Urine,Clean Catch Urine Culture - Preliminary Narrative: Pleasant, talkative, lungs clear, heart rate regular. Abdomen soft, ENT exam clear. Neurologic exam nonfocal except for some weakness. Right leg remains unchanged. Assessment and Plan (1) Flexion contracture of right knee Status: Acute Category: Medical Code(s): M24.561 - Contracture, right knee (2) Frequent falls Status: Acute Category: Medical Code(s): R29.6 - Repeated falls (3) UTI (urinary tract infection) Status: Acute Qualifiers: Urinary tract infection type: acute cystitis Hematuria presence: without hematuria Qualified Code(s): N30.00 - Acute cystitis without hematuria Category: Medical Code(s): N39.0 - Urinary tract infection, site not specified (4) Fall Status: Acute Qualifiers: Encounter type: initial encounter Qualified Code(s): W19.XXXA - Unspecified fall, initial encounter Category: Medical Code(s): W19.XXXA - Unspecified fall, initial encounter - Assessment and plan all Dx Assessment and Plan for all problems:: Overall patient stable. Await urine culture. Await senior care bed availability for transfer for ongoing rehab/long-term care.
[2021-09-30 13:55] VITALS: BP 119/78; PULSE 62; RESP 17; TEMP 37.3; O2SAT 94
[2021-09-30 16:00] VITALS: BP 113/61; PULSE 98; RESP 20; TEMP 36.7; O2SAT 94
--- NOTE | 2021-09-30 18:35 | PC.NURSE ---
Pt has been pleasant and cooperative this shift. A&O X4. Pt has complained of pain X1 and received Tylenol per MAR with favorable results. Pt is on room air with sats. >90%. Lungs CTA. No edema noted. Skin is C/D/I. Pt is incontinent and urine is clear and yellow. No BM thus far this shift. Appetite is good and pt eats about 75% of every meal. 22 G peripheral IV in the RT forearm is patent and SL. VSS. Call light within reach. Will continue to monitor.
[2021-09-30 20:00] VITALS: BP 111/61; PULSE 87; RESP 18; TEMP 36.7; O2SAT 95
[2021-10-01 03:41] VITALS: BP 121/62; PULSE 85; RESP 17; TEMP 36.3; O2SAT 94
--- NOTE | 2021-10-01 05:30 | PC.NURSE ---
No acute changes thus far in shift. Pt has rested well. Pt has voiced no c/o of pain, N/V. Call light within reach.
[2021-10-01 08:00] VITALS: BP 146/92; PULSE 96; RESP 16; TEMP 37; O2SAT 96
--- NOTE | 2021-10-01 08:17 | HMH.DCSUM ---
General - General Admission date:: 09/27/21 Discharge date: 10/01/21 HPI HPI: 81-year-old white female, who has been for the past year and a half, who has limited functional capacity because of a right-sided knee contracture deformity based on her report of an operative injury from knee replacement surgery several years ago in which her quadriceps tendon was cut. She unfortunately is unable to extend her right leg completely and has had frequent falls. A couple of weeks ago she was found to have a complex urinary tract infection with Serratia and E. coli, and unfortunately seems to have not recovered well from this and has had some abdominal pain, confusion and worsening falls. She came to the emergency department yesterday afternoon, continued to have some confusion and inability to walk on her own, and was found to have presence of a urinary tract infection with hematuria, pyuria and abdominal discomfort. Admitted to hospital for intravenous antibiotics, further evaluation of her home safety, etc. Hospital Course Hospital Course: Patient was admitted, treated for UTI as noted. Given her history of her leg deformity PT evaluated her and felt that she would do well in a skilled care facility, she was initially somewhat resistant to this idea but after talking with her family and evaluated again with physical therapy she realized that this is probably the safest way for her to go. She was found to have a bed at [facility] and she will be transferred there today. UTI was found to be E. coli, this will be treated orally. On admission [facility] she will need a PT/OT/dietary evaluation. Otherwise medications are as noted on the reconciliation form. Follow be on our rounds at that facility. Objective Vital signs: Temp Pulse Resp BP Pulse Ox 98.6 F 96 H 16 146/92 H 96 10/01/21 08:00 10/01/21 08:00 10/01/21 08:00 10/01/21 08:00 10/01/21 08:00 no acute distress - *Routine HEENT Exam Head: Present: normocephalic Eye: Present: EOMI, PERRL ENT: Present: mucous membranes moist - *Routine Neck Exam Present: supple - *Routine Respiratory Exam Present: CTA bilaterally - *Routine Cardiovascular Exam Present: RRR - *Routine Abdominal Exam Present: soft, normoactive bowel sounds. Absent: tenderness - *Routine Extremities Exam Absent: cyanosis, clubbing, edema Comments: Significant knee contracture on the right as previously noted. Significant ambulation disturbance. Significant abrasions on knuckles of toes and knees from from prior falls at home - *Routine Skin Exam Present: warm. Absent: rash - Detailed Eye Exam Eyelids: Bilateral normal inspection Results Labs on day of discharge: Labs from last 24 hours 09/27/21 13:03 Urine Color Yellow Urine Appearance Clear Urine pH 6.0 Ur Specific [place] 1.020 Urine Protein Negative Urine Glucose (UA) Negative Urine Ketones Negative Urine Blood 2+ Urine Nitrate Positive Urine Bilirubin Negative Urine Urobilinogen 0.2 Ur Leukocyte Esterase 3+ A Urine RBC 5-10 Urine WBC 20-50 Ur Squamous Epith Cells Occasional Urine Bacteria 1+ DS: Diagnosis - Discharge Diagnosis (1) Flexion contracture of right knee Status: Chronic (2) Frequent falls Status: Chronic (3) UTI (urinary tract infection) Status: Acute (4) Fall Status: Acute Discharge Plan - Patient Discharge Instructions ACTIVITY: Ambulate as tolerated, Up with assistance DIET: continue same diet Patient Instructions: Urinary Tract Infection, DI for Urinary Tract Infection (UTI), How to Prevent Falls, DI for Muscle Weakness - Follow up Plan Disposition: Xfer SNF Condition at discharge:: Improved Home Medications: Home Medications Medication Instructions Recorded Confirmed Type Dexlansoprazole [Dexilant] 60 mg PO DAILY 09/27/21 09/27/21 History Temazepam [Restoril] 15 mg PO HS #90
[2021-10-01 10:58] VITALS: BP 115/62; PULSE 87; RESP 16; TEMP 36.9; O2SAT 98
[2021-10-01 15:15] VITALS: BP 145/86; PULSE 94; RESP 16; TEMP 36.9; O2SAT 93
--- NOTE | 2021-10-01 19:05 | PC.NURSE ---
Pt has been pleasant this shift. Pt has been a total assist during transfers this shift, pt bears no weight. Purewick remains in placed, urine is clear and dark yellow. No other acute changes.
[2021-10-01 19:55] VITALS: BP 111/57; PULSE 86; RESP 18; TEMP 36.7; O2SAT 95
[2021-10-01 20:00] VITALS: PULSE 86; O2SAT 95
[2021-10-02 03:42] VITALS: BP 142/84; PULSE 94; RESP 18; TEMP 36.6; O2SAT 96
[2021-10-02 05:14] VITALS: BMI 26.0
[2021-10-02 08:00] VITALS: BP 133/83; PULSE 92; RESP 16; TEMP 36.9; O2SAT 94
--- NOTE | 2021-10-02 08:12 | HMH.ACPN2 ---
Internal Medicine - PN: Subj *Date: 10/02/21 *Time: 08:12 Interval history: Patient is pleasant, talkative. Unfortunately discharge transfer was not accomplished yesterday because of insurance authorization delays from the insurance bureaucracy. Exam Vital signs and Labs for Last 24 Hours: Temp Pulse Resp BP Pulse Ox 97.9 F 94 H 18 142/84 H 96 10/02/21 03:42 10/02/21 03:42 10/02/21 03:42 10/02/21 03:42 10/02/21 03:42 I & O for Last 24 hours: Intake & Output 09/29/21 09/30/21 10/01/21 10/02/21 11:59 11:59 11:59 11:59 Intake Total 420 / 420 1680 / 1680 870 / 870 420 / 420 Output Total 1250 / 1250 2250 / 2250 900 / 900 1600 / 1600 Balance -830 / -830 -570 / -570 -30 / -30 -1180 / -1180 Weight 179 lb 3.773 oz 187 lb 2.759 oz 182 lb 1.629 oz Microbiology Reports for the Last 24 Hours: Microbiology 09/27/21 13:03 Urine,Clean Catch Urine Culture - Final Escherichia coli Narrative: Leg exam unchanged. Flexion deformity noted. Alert, pleasant. Cardiopulmonary exam unchanged. Eating breakfast vigorously. ENT exam clear. Assessment and Plan (1) Flexion contracture of right knee Status: Chronic Category: Medical Code(s): M24.561 - Contracture, right knee (2) Frequent falls Status: Chronic Category: Medical Code(s): R29.6 - Repeated falls (3) UTI (urinary tract infection) Status: Acute Qualifiers: Urinary tract infection type: acute cystitis Hematuria presence: without hematuria Qualified Code(s): N30.00 - Acute cystitis without hematuria Category: Medical Code(s): N39.0 - Urinary tract infection, site not specified (4) Fall Status: Acute Qualifiers: Encounter type: initial encounter Qualified Code(s): W19.XXXA - Unspecified fall, initial encounter Category: Medical Code(s): W19.XXXA - Unspecified fall, initial encounter - Assessment and plan all Dx Assessment and Plan for all problems:: No change in plans. Patient is a good candidate for several days/weeks of rehabilitation for frequent falls. Plan is as outlined on yesterday's discharge summary.
[2021-10-02 10:13] LABS: Coronavirus 19, PCR Not Detected (NotDetected); Influenza A, PCR Not Detected (NotDetected); Influenza B, PCR Not Detected (NotDetected)
--- NOTE | 2021-10-02 12:29 | PC.NURSE ---
called and asked lab at this time how long was left on covid swab. they stated it would be thirty minutes from now
--- NOTE | 2021-10-02 13:00 | PC.NURSE ---
called report at this time to [facility]
== END 2021-10-02 15:28 ==
LOC: ER 16:39 → 2ND 16:47
PROVIDERS: Admitting Provider Internal Medicine Adolescent Medicine; Emergency Provider Emergency Medicine; PCP Internal Medicine; Visit Provider Internal Medicine Adolescent Medicine
DX: M62.461 Contracture of muscle, right lower leg (principal); N39.0 Urinary tract infection, site not specified; Z20.822 Contact with and (suspected) exposure to COVID-19; I10 Essential (primary) hypertension; M24.561 Contracture, right knee; R29.6 Repeated falls
CPT/HCPCS: G0378; 36415; 70450; 71045; 80053; 81001; 82550; 84484; 85025; 87086; 87088; 87186; 93005; 96365; 97110; 97162; 97166; 97530; 99284; C9803; J1956; J2405; U0003; U0005

== ENCOUNTER → 2022-01-30 16:53 | Outpatient (CLI) | payer MEDICARE, SELFPAY ==
[2022-01-30 18:21] LABS: Chloride 101 mmol/L (98-107); Potassium 4.7 mmoL/L (3.5-5.1); Sodium 134 mmol/L (136-145)
[2022-01-30 18:23] LABS: Blood Urea Nitrogen 17 mg/dl (7-17); Estimated Glomerular Filt Rate 96 ml/min (>60); GFR (African American) 116 ML/MIN (>60)
[2022-01-30 18:24] LABS: Alanine Aminotransferase 13 U/L (12-78); Albumin Level 4.1 g/dl (3.5-5.0); Albumin/Globulin Ratio 1.6 (1.1-1.8); Alkaline Phosphatase 97 U/L (38-126); Anion Gap 14.7 mEq/L (5-15); Aspartate Amino Transferase 23 U/L (14-36); Bilirubin,Total 0.3 mg/dl (0.2-1.3); Calcium 9.2 mg/dl (8.4-10.2); Carbon Dioxide 23 mmol/L (22.0-30.0); Chol/HDL Ratio 4.7 (1-3.5); Cholesterol 182 mg/dl (140-200); Globulin 2.5 g/dL (1.3-3.2); Glucose 87 mg/dl (74-100); HDL Cholesterol 39 mg/dl (40-60); Total Protein,Serum 6.6 g/dl (6.3-8.2); Triglycerides 357 mg/dl (30-150); VLDL Cholesterol 71 mg/dL (0-40)
[2022-01-30 18:35] LABS: Direct LDL Cholesterol 90.22 mg/dL (100-129)
[2022-01-30 19:54] LABS: Vitamin B12 > 1000 pg/mL (239-931)
[2022-01-30 20:06] LABS: 25-OH Vitamin D, Total 47.2 ng/mL (30-100)
== END ==
PROVIDERS: PCP Internal Medicine; Visit Provider Internal Medicine
DX: I10 Essential (primary) hypertension (principal); E78.5 Hyperlipidemia, unspecified; M15.0 Primary generalized (osteo)arthritis; K21.9 Gastro-esophageal reflux disease without esophagitis; F41.9 Anxiety disorder, unspecified; M35.01 Sjogren syndrome with keratoconjunctivitis; E55.9 Vitamin D deficiency, unspecified; E53.8 Deficiency of other specified B group vitamins
CPT/HCPCS: 80053; 80061; 82306; 82607; 83735

== ENCOUNTER 2022-03-28 11:12 | Emergency (ER) | payer MEDICARE, SELFPAY ==
[2022-03-28] VITALS (10 sets, daily range): BP systolic 88–120; BP diastolic 57–76; PULSE 81–102; RESP 17–20; TEMP 36.6–36.7; O2SAT 91–94; BMI 25.8
--- NOTE | 2022-03-28 11:12 | XR_ITS ---
FINAL REPORT CLINICAL HISTORY: cough, cp COMPARISON: September 27, 2021 FINDINGS: A single portable view of the chest was obtained. The heart size and pulmonary vascularity are within normal limits. The mediastinum is within normal limits. No acute pulmonary abnormality is identified. The bony thorax is intact. IMPRESSION: No active cardiopulmonary disease. Reviewed, Interpreted and Dictated by Capo Lovell III, MD Transcribed by Jemma Shoemaker Authenticated and [facility]
--- NOTE | 2022-03-28 11:14 | HMH.EDGENADL ---
ED Disposition Clinical Impression: Bronchitis Disposition: Home, Self-Care Condition on Discharge: Good Instructions: Acute Bronchitis Additional Instructions: follow up PCP, return here for worse Prescriptions: Albuterol Sulfate [Albuterol 0.083% 2.5mg/3mL neb] 2.5 mg IH Q4HP PRN #30 ml PRN Reason: Wheezing Transmission Status: Pending to [facility] Guaifenesin/Dextromethorphan [Robitussin DM 200mg/20mg 10mL UDC] 10 ml PO Q4-6H PRN #200 ml PRN Reason: Cough Transmission Status: Pending to [facility] Referrals: Erasmo Hadley MD [Primary Care Provider] - - Critical Care Critical Care Time: No Attestation: On , the high probability of a clinically significant, sudden or life threatening deterioration of the following system(s) required my full and direct attention, intervention and personal management. The time I documented below is in addition to time spent performing reported procedures but includes the following listed in this critical care notation. Medical Decision Making - Medical Records Medical records reviewed: Yes: I reviewed the patient's medical records. - Roel Inquiry Pt receiving controlled substance: No Vital Signs: 03/28/22 11:26 03/28/22 11:51 03/28/22 12:00 Temperature 97.9 F Temperature Source Oral Pulse Rate 82 85 Pulse Rate [Left Radial] 83 Pulse Rate [Orthostatic Lying Right Radial] Pulse Rate [Orthostatic Sitting Right Radial] Respiratory Rate 17 18 Blood Pressure 88/66 L 92/60 L Blood Pressure [Orthostatic Lying Right Arm] Blood Pressure [Orthostatic Sitting Right Arm] Blood Pressure [Right Arm] 101/61 L Blood Pressure Mean 67 Blood Pressure Mean [Right Arm] 74 Blood Pressure Source Automatic Cuff Blood Pressure Position Sitting 02 Sat by Pulse Oximetry 94 L 91 L 91 L Oxygen Delivery Method Room Air Room Air 03/28/22 12:15 03/28/22 12:46 03/28/22 13:00 Temperature Temperature Source Pulse Rate 84 102 H 83 Pulse Rate [Left Radial] Pulse Rate [Orthostatic Lying Right Radial] Pulse Rate [Orthostatic Sitting Right Radial] Respiratory Rate 17 17 Blood Pressure 102/58 L 94/76 L 107/64 L Blood Pressure [Orthostatic Lying Right Arm] Blood Pressure [Orthostatic Sitting Right Arm] Blood Pressure [Right Arm] Blood Pressure Mean 77 80 82 Blood Pressure Mean [Right Arm] Blood Pressure Source Blood Pressure Position 02 Sat by Pulse Oximetry 92 L 94 L 94 L Oxygen Delivery Method Room Air Room Air 03/28/22 13:15 03/28/22 13:25 03/28/22 13:31 Temperature Temperature Source Pulse Rate 94 H 82 Pulse Rate [Left Radial] Pulse Rate [Orthostatic Lying Right Radial] 84 Pulse Rate [Orthostatic Sitting Right Radial] 86 Respiratory Rate 18 18 Blood Pressure 120/73 106/57 L Blood Pressure [Orthostatic Lying Right Arm] 107/64 L Blood Pressure [Orthostatic Sitting Right Arm] 120/73 Blood Pressure [Right Arm] Blood Pressure Mean 83 85 Blood Pressure Mean [Right Arm] Blood Pressure Source Blood Pressure Position 02 Sat by Pulse Oximetry 93 L 93 L Oxygen Delivery Method Room Air Room Air - Lab Data Lab Results 03/28/22 11:10: WBC 15.1 H, RBC 3.93 L, Hgb 10.6 L, Hct 31.4 L, MCV 79.7 L, MCH 26.9 L, MCHC 33.7, RDW 13.8, Plt Count 451 H, MPV 6.8 L, Neut % (Auto) 87.7 H, Lymph % (Auto) 4.6 L, [place] % (Auto) 6.1, Eos % (Auto) 1.3, Baso % (Auto) 0.2, Neut # (Auto) 13.3 H, Lymph # (Auto) 0.7, [place] # (Auto) 0.9, Eos # (Auto) 0.2, Baso # (Auto) 0.0, Total Counted 100, Neutrophils % (Manual) 92 H, Lymphocytes % (Manual) 5 L, Monocytes % (Manual) 3, Platelet Estimate Normal, Hypochromasia 1+ 03/28/22 11:10: Sodium 126 L, Potassium 4.5, Chloride 94 L, Carbon Dioxide 24, Anion Gap 12.5, BUN 14, Creatinine 0.50 L, Estimated Creat Clear 57, Estimated GFR 118, Est GFR ( Amer) 143, Glucose 116 H, Calcium 8.4, Total Bilirubin 0.1 L, AST 36, ALT 27, Alkaline Phosphatase 112, Tro
--- NOTE | 2022-03-28 11:22 | ECG_ITS ---
APPROVED REPORT Exam: Resting ECG HR:80 bpm ECG Measurements Heart Rate 80 AXES MA 166 P 16 QRSd 91 QRS 55 QT 389 T 74 QTc 425 Conclusion SINUS RHYTHM NORMAL ECG UNCONFIRMED REPORT Electronically signed by : Issa Zavaleta MD 03/29/2022 17:32:22
[2022-03-28 11:28] LABS: Basophils % 0.2 % (0.1-2.0); Eosinophils # 0.2 K/mm3 (0.0-0.4); Eosinophils % 1.3 % (0.1-12.0); Hematocrit 31.4 % (37.0-47.0); Hemoglobin 10.6 g/dL (12.2-16.2); Lymphocytes # 0.7 K/mm3 (0.7-4.5); Lymphocytes % 4.6 % (10-50); Mean Corpuscular HGB Conc 33.7 g/dL (31.8-35.4); Mean Corpuscular Hemoglobin 26.9 pg (27.0-31.2); Mean Corpuscular Volume 79.7 fl (81-99); Mean Platelet Volume 6.8 fl (7.4-10.4); Monocytes # 0.9 K/mm3 (0.1-1.0); Monocytes % 6.1 % (1.7-9.3); Neutrophils # 13.3 K/mm3 (1.8-7.8); Neutrophils % 87.7 % (37.0-80.0); Platelet Count 451 K/mm3 (142-424); Red Blood Count 3.93 M/mm3 (4.20-5.40); Red Cell Distribution Width 13.8 % (11.5-17.5); White Blood Count 15.1 K/mm3 (4.8-10.8)
[2022-03-28 11:31] LABS: MANUAL DIFFERENTIAL MANUAL DIFFERENTIAL (MANUAL DIFF)
[2022-03-28 11:35] LABS: Alanine Aminotransferase 27 U/L (12-78); Albumin Level 3.3 g/dl (3.5-5.0); Albumin/Globulin Ratio 1.1 (1.1-1.8); Alkaline Phosphatase 112 U/L (38-126); Anion Gap 12.5 mEq/L (5-15); Aspartate Amino Transferase 36 U/L (14-36); Bilirubin,Total 0.1 mg/dl (0.2-1.3); Blood Urea Nitrogen 14 mg/dl (7-17); Calcium 8.4 mg/dl (8.4-10.2); Carbon Dioxide 24 mmol/L (22.0-30.0); Chloride 94 mmol/L (98-107); Creatinine Clearance Estimated 57 mL/min (50-200); Estimated Glomerular Filt Rate 118 ml/min (>60); GFR (African American) 143 ML/MIN (>60); Globulin 3.1 g/dL (1.3-3.2); Glucose 116 mg/dl (74-100); Potassium 4.5 mmoL/L (3.5-5.1); Sodium 126 mmol/L (136-145); Total Protein,Serum 6.4 g/dl (6.3-8.2)
[2022-03-28 11:47] LABS: Troponin I < 0.01 ng/ml (0.00-0.034)
[2022-03-28 11:53] LABS: Lymphocytes % 5 % (10-50); Monocytes % 3 % (2-9); Neutrophils % 92 % (42-76); Total Cells Counted 100
[2022-03-28 11:54] LABS: Hypochromasia 1+; Platelet Estimate Normal
--- NOTE | 2022-03-28 11:56 | PC.NURSE ---
WARREN Harvey informed of patients low BP. She went in to patients BS.
[2022-03-28 12:15] LABS: Lactic Acid 1.6 mmol/L (0.7-2.1)
--- NOTE | 2022-03-28 12:58 | PC.NURSE ---
MARYELLEN SPANN at speaking with patient and paierick ortiz
--- NOTE | 2022-03-28 13:10 | PC.NURSE ---
CATH UA COLLECTED, ATTENDS CHANGED, PT CLEANED UP
[2022-03-28 13:14] LABS: Microscopic, Urine URINE MICROSCOPIC (MICROSCOPIC)
[2022-03-28 13:21] LABS: Appearance,Urine CLEAR (Clear); Bilirubin,Urine Negative (Negative); Blood, Urine 1+ (Negative); Color,Urine YELLOW (Yellow); Glucose,Urine (UA) Negative (Negative); Ketones,Urine Negative (Negative); Leukocyte Esterase,Urine Negative (Negative); Nitrate,Urine Negative (Negative); Protein,Urine Negative (Negative); Specific Gravity, Urine <= 1.005 (1.005-1.030)
[2022-03-28 13:28] LABS: Occult Blood,Stool Negative (Negative)
[2022-03-28 13:37] LABS: Bacteria,Urine Trace /lpf; RBC,Urine Occasional #/hpf (0-3); Squamous Epithelial Cell,Urine Occasional #/hpf (0-5); WBC,Urine Occasional #/hpf (0-3)
== END 2022-03-28 14:50 | disposition home or self-care (01) ==
PROVIDERS: Emergency Provider Emergency Medicine; PCP Internal Medicine
DX: J40 Bronchitis, not specified as acute or chronic (principal); Z79.899 Other long term (current) drug therapy; E78.5 Hyperlipidemia, unspecified; I10 Essential (primary) hypertension
CPT/HCPCS: 71045; 80053; 81001; 82272; 83605; 84484; 85007; 85025; 93005; 99283; G0328

== ENCOUNTER → 2022-09-18 19:12 | Outpatient (CLI) | payer MEDICARE, SELFPAY ==
[2022-09-18 20:04] LABS: Microscopic, Urine URINE MICROSCOPIC (MICROSCOPIC)
[2022-09-18 20:57] LABS: Appearance,Urine CLOUDY (Clear); Bilirubin,Urine Negative (Negative); Blood, Urine 2+ (Negative); Color,Urine YELLOW (Yellow); Glucose,Urine (UA) Negative (Negative); Ketones,Urine Negative (Negative); Leukocyte Esterase,Urine 2+ (Negative); Nitrate,Urine Negative (Negative); Protein,Urine 1+ (Negative); Specific Gravity, Urine 1.025 (1.005-1.030); Urobilinogen,Urine 0.2 EU/dl (0.2)
[2022-09-18 21:16] LABS: Bacteria,Urine 1+ /lpf; Squamous Epithelial Cell,Urine Occasional #/hpf (0-5); WBC,Urine TNTC #/hpf (0-3)
== END ==
PROVIDERS: PCP Internal Medicine; Visit Provider Internal Medicine
DX: N39.0 Urinary tract infection, site not specified (principal); B96.1 Klebsiella pneumoniae [K. pneumoniae] as the cause of diseases classified elsewhere; B96.29 Other Escherichia coli [E. coli] as the cause of diseases classified elsewhere
CPT/HCPCS: 81001; 87086; 87088; 87186

== ENCOUNTER → 2022-11-04 13:06 | Outpatient (POV) | payer MEDICARE, SELFPAY ==
[2022-11-04 13:53] VITALS: BP 89/60; PULSE 85; RESP 18; O2SAT 97; BMI 30.8
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
== END | disposition home or self-care (01) ==
PROVIDERS: PCP Family Medicine; Visit Provider Nurse Practitioner Family
DX: M54.12 Radiculopathy, cervical region (principal); M25.561 Pain in right knee; M79.601 Pain in right arm
CPT/HCPCS: 99202; G0463

== ENCOUNTER 2023-02-12 11:31 | Observation (INO) | payer MEDICARE, SELFPAY ==
[2023-02-12] VITALS (18 sets, daily range): BP systolic 75–184; BP diastolic 44–74; PULSE 54–89; RESP 18–20; TEMP 36.5–36.8; O2SAT 90–98; BMI 26.5; BMI 26.1
--- NOTE | 2023-02-12 11:29 | XR_ITS ---
FINAL REPORT CLINICAL HISTORY: Shortness of breath COMPARISON: 03/28/2022 FINDINGS: No acute pulmonary opacity is present. There is no evidence of effusion or pneumothorax. There is a moderate-sized hiatal hernia. Heart size is normal. IMPRESSION: No acute cardiopulmonary process. Reviewed, Interpreted and Dictated by Kendall Charlton MD Transcribed by Jemma Shoemaker Authenticated and [facility]
--- NOTE | 2023-02-12 11:36 | HMH.EDGENADL ---
Discharge Plan Disposition Patient Disposition: Admitted As Inpatient Prescriptions Prescriptions: New amoxicillin-pot clavulanate [Augmentin] 500-125 mg tablet 1 tab PO TID Qty: 7 0RF No Action cholecalciferol (vitamin D3) 125 mcg (5,000 unit) capsule 125 mcg PO DAILY Digestive Health Probiotic 10 billion cell capsule 1 cap PO DAILY celecoxib 100 mg capsule 100 mg PO DAILY 90 Days Qty: 90 0RF gabapentin 300 mg capsule 300 mg PO QID losartan 50 mg tablet 50 mg PO DAILY tolterodine 4 mg capsule,extended release 24hr 4 mg PO DAILY omeprazole 40 mg capsule,delayed release(DR/EC) 40 mg PO DAILY escitalopram oxalate [Lexapro] 20 mg tablet 20 mg PO DAILY ketoconazole 2 % cream 1 applic topical DAILY Referrals Follow up/Referrals: Geo Mahoney MD [Primary Care Provider] - See instructions Activity Restrictions/Add. Instructions Additional Instructions/Restrictions: Return for worsening difficulty breathing chest pain cough or any other concerns within the next 8 hours. Follow-up with your primary care physician within the next few days Clinical Impressions Clinical Impression: Acute bronchitis, Urinary tract infection Discharge ED Provider: Les Hood General Adult HPI General Chief complaint: Upper Respiratory Infection Stated complaint: cough Time Seen by Provider: 02/12/23 11:35 History of Present Illness HPI narrative: 82-year-old female presents with generalized weakness and cough for 2 weeks. She has home health 28/04 and they were concerned that her cough is getting worse. She has not been on antibiotics recently. She has been taking codeine at home for cough. No nausea vomiting abdominal pain. No recent flu or COVID exposures. Related Data Home Medications Medication Instructions Recorded Confirmed Lactobacillus acidophilus and 1 cap PO DAILY Supplement 10/23/22 02/12/23 rhamnosus 10 billion cell capsule (Digestive Health Probiotic) cholecalciferol (vitamin D3) 125 125 mcg PO DAILY Supplement 10/23/22 02/12/23 mcg (5,000 unit) capsule ketoconazole 2 % topical cream 1 applic topical DAILY Skin 11/04/22 02/12/23 condition escitalopram oxalate 20 mg tablet 20 mg PO DAILY Mood 02/12/23 02/12/23 (Lexapro) gabapentin 300 mg capsule 300 mg PO QID Pain 02/12/23 02/12/23 losartan 50 mg tablet 50 mg PO DAILY High blood pressure 02/12/23 02/12/23 omeprazole 40 mg capsule,delayed 40 mg PO DAILY Acid reflux 02/12/23 02/12/23 release tolterodine 4 mg capsule,extended 4 mg PO DAILY Urinary 02/12/23 02/12/23 release 24 hr Previous Rx's Medication Instructions Recorded celecoxib 100 mg capsule 100 mg PO DAILY Pain 90 days #90 12/23/22 caps amoxicillin 500 mg-potassium 1 tab PO TID #7 tabs 02/12/23 clavulanate 125 mg tablet (Augmentin) Allergies Allergy/AdvReac Type Severity Reaction Status Date / Time No Known Allergies Allergy Verified 11/27/22 13:14 [facility] Disclaimer: The information contained in this section may have been updated after the patient was seen, as this information can be updated by other users. Medical History Acid reflux History of blood transfusion Hyperlipidemia Knee effusion, right Raynaud disease Surgical History History of dilation and curettage History of total right knee replacement Social History Smoking Status: Never smoker second hand exposure: No alcohol intake: never substance use type: denies use current occupational status: retired Travel in the last 8 weeks: None housing: house lives independently: No marital status: caffeine: Yes ROS Obtained: Yes All systems reviewed & no additional complaints except as documented Constitutional Constitutional: Denies fatigue
--- NOTE | 2023-02-12 11:37 | PC.NURSE ---
pt reports she is not allowing staff to draw blood until she gets her cxr to see whats going on. pt states she is hypotensive at baseline and declines IV fluids. pt 02 sat ranging 89-91%, offered 2LNC for comfort, pt declined and states i am not short of air.
--- NOTE | 2023-02-12 11:41 | PC.NURSE ---
portable xray at
[2023-02-12 12:55] LABS: Basophils # 0.1 K/mm3 (0-0.2); Basophils % 0.4 % (0.1-2.0); Eosinophils # 0.2 K/mm3 (0.0-0.4); Eosinophils % 1.4 % (0.1-12.0); Hematocrit 38.7 % (37.0-47.0); Hemoglobin 12.7 g/dL (12.2-16.2); Lymphocytes # 0.9 K/mm3 (0.7-4.5); Lymphocytes % 7.2 % (10-50); Mean Corpuscular HGB Conc 32.7 g/dL (31.8-35.4); Mean Corpuscular Hemoglobin 26.8 pg (27.0-31.2); Mean Corpuscular Volume 81.9 fl (81-99); Mean Platelet Volume 7.9 fl (7.4-10.4); Monocytes % 7.7 % (1.7-9.3); Neutrophils # 10.5 K/mm3 (1.8-7.8); Neutrophils % 83.3 % (37.0-80.0); Platelet Count 396 K/mm3 (142-424); Red Blood Count 4.73 M/mm3 (4.20-5.40); Red Cell Distribution Width 15.2 % (11.5-17.5); White Blood Count 12.6 K/mm3 (4.8-10.8)
[2023-02-12 12:57] LABS: Chloride 95 mmol/L (98-107); Sodium 135 mmol/L (136-145)
[2023-02-12 12:59] LABS: Blood Urea Nitrogen 14 mg/dl (7-17)
[2023-02-12 13:00] LABS: Alanine Aminotransferase 21 U/L (12-78); Albumin Level 3.9 g/dl (3.5-5.0); Albumin/Globulin Ratio 1.2 (1.1-1.8); Alkaline Phosphatase 92 U/L (38-126); Aspartate Amino Transferase 22 U/L (14-36); Bilirubin,Total 0.4 mg/dl (0.2-1.3); Calcium 8.8 mg/dl (8.4-10.2); Carbon Dioxide 25 mmol/L (22.0-30.0); Creatinine Clearance Estimated 57 mL/min (50-200); Estimated Glomerular Filt Rate 80 ml/min (>60); GFR (African American) 97 ML/MIN (>60); Globulin 3.2 g/dL (1.3-3.2); Glucose 131 mg/dl (74-100); Total Protein,Serum 7.1 g/dl (6.3-8.2)
--- NOTE | 2023-02-12 14:14 | PC.NURSE ---
called pts sitter to see if she could come get pt and assist with transport home. pts sitter states that they are unable to get pt into a vehicle.
--- NOTE | 2023-02-12 14:36 | PC.NURSE ---
called pts daughter Manisha, no answer, left a voicemail.
[2023-02-12 15:17] LABS: Microscopic, Urine URINE MICROSCOPIC (MICROSCOPIC)
[2023-02-12 15:20] LABS: Appearance,Urine CLOUDY (Clear); Bilirubin,Urine Negative (Negative); Blood, Urine TRACE-I (Negative); Color,Urine YELLOW (Yellow); Glucose,Urine (UA) Negative (Negative); Ketones,Urine Negative (Negative); Leukocyte Esterase,Urine 2+ (Negative); Nitrate,Urine Negative (Negative); PH,Urine 5.5 (5.0-8.5); Protein,Urine TRACE (Negative); Specific Gravity, Urine 1.015 (1.005-1.030)
[2023-02-12 16:21] LABS: Bacteria,Urine 4+ /lpf; WBC,Urine 20-50 #/hpf (0-3)
--- NOTE | 2023-02-12 16:42 | PC.NURSE ---
TALKED TO DISINTEGRATOR FEEDER FOR ADMISSION TO FLOOR
--- NOTE | 2023-02-12 16:50 | PC.NURSE ---
spoke with daughter (poa) and updated on POC
[2023-02-12 16:56] LABS: Coronavirus 19, PCR Not Detected (NotDetected); Influenza A, PCR Not Detected (NotDetected); Influenza B, PCR Not Detected (NotDetected)
--- NOTE | 2023-02-12 17:10 | PC.NURSE ---
blood cultures obtained from left hand and right antecubital
--- NOTE | 2023-02-12 17:13 | PC.NURSE ---
attempted to call report to second floor, nurse states that she will call me back, she is speaking with MD.
--- NOTE | 2023-02-12 17:21 | PC.NURSE ---
report called to Rosi on second floor
--- NOTE | 2023-02-12 17:40 | CT_ITS ---
PROCEDURE INFORMATION: Exam: CT Chest Without Contrast; Diagnostic Exam date and time: 02/12/2023 6:09 PM Age: 82 years old Clinical indication: Cough; Additional info: Cough and hypotension TECHNIQUE: Imaging protocol: Diagnostic computed tomography of the chest without contrast. Radiation optimization: All CT scans at this facility use at least one of these dose optimization techniques: automated exposure control; mA and/or kV adjustment per patient size (includes targeted exams where dose is matched to clinical indication); or iterative reconstruction. REPORTING DATA: Count of CT and Cardiac NM exams in prior 12 months: This patient has received 0 known CTs and 0 known cardiac nuclear medicine studies in the 12 months prior to the current study. COMPARISON: CR XR CHEST PORTABLE 02/12/2023 11:56 AM FINDINGS: Lungs: There is minimal focal infiltrate in the lingula. There is mild dependent atelectasis in the right lower lobe. Lungs are otherwise clear. Pleural spaces: Minimal right pleural effusion. No pneumothorax. Heart: Unremarkable. No cardiomegaly. No pericardial effusion. Coronary arteries: Dense coronary artery calcifications. Lymph nodes: Unremarkable. No enlarged lymph nodes. Vasculature: Dense atherosclerotic calcification noted aorta. No evidence of aortic aneurysm. Diaphragm: There is a small hiatal hernia. Gallbladder and bile ducts: Partially calcified gallstones noted in the upper abdomen. Bones/joints: Significant degenerative disc changes noted throughout the thoracic spine. No vertebral body compression or acute fracture. Soft tissues: Unremarkable. IMPRESSION: 1. Minimal focal lingular infiltrate as well as mild right lower lobe atelectasis and small right pleural effusion. Otherwise chronic appearing findings in the chest as noted. 2. Incidentally noted cholelithiasis and small hiatal hernia
--- NOTE | 2023-02-12 17:43 | EXP.HP ---
History of Present Illness *Admission Date: 02/12/23 *Reason for visit:: Chief complaint: Cough *History of present illness: This is an 82-year-old female that presents to [facility] emergency department with concerns of a cough over a week not improving. Her past medical history is significant for tobacco use of > 50 years 1 pack/day. She reports that she quit 3 years ago. She describes a croupy cough that has gotten worse over the last couple days. She is now expectorating green phlegm. She denies associated hemoptysis. She reports increased dyspnea with exertion. She denies associated retrosternal chest pain or palpitations. She reports the cough is causing urinary incontinence. She voices concerns with a UTI. In the ED she is afebrile with Pulse ox in the low 90s on room air. Her CBC identifies a leukocytosis. Her chest x-ray identifies no infiltrate. She is and lives alone in [place] but hire sitters to help her (Dia Connor). [facility] Medical History (Updated 02/12/23 @ 17:52 by Candelario Gallardo MD) Acid reflux COPD (chronic obstructive pulmonary disease) Hyperlipidemia Osteoarthritis Raynaud disease Tobacco dependence in remission Surgical History (Updated 02/12/23 @ 17:18 by Maxine Vigil RN) H/O laminectomy History of appendectomy History of dilation and curettage History of total right knee replacement Family History (Updated 02/12/23 @ 17:54 by Candelario Gallardo MD) Mother CHF (congestive heart failure) Father Coronary artery disease Social History (Updated 02/12/23 @ 17:54 by Candelario Gallardo MD) Smoking Status: Former smoker years smoked: 50 smoking status stop date: 2019 second hand exposure: Yes alcohol intake: never substance use type: denies use current occupational status: retired Travel in the last 8 weeks: None housing: house lives independently: No marital status: caffeine: Yes Review of Systems Review of Systems Review of systems:: pertinent systems reviewed and negative unless documented below Constitutional Constitutional: Reports chills, Denies fever(s), Reports poor appetite, Reports lethargy and Reports weakness Eyes Eyes: Reports eye discharge ENT Ears, Nose, Mouth, and Throat: Reports nasal congestion and Reports post nasal drip *Cardiovascular Cardiovascular: Denies chest pain, Denies chest pain at rest, Reports dyspnea, Reports dyspnea on exertion, Denies orthopnea and Denies palpitations *Respiratory Respiratory: Reports cough, Reports dyspnea, Reports dyspnea on exertion, Denies hemoptysis and Reports wheezing *Gastrointestinal Gastrointestinal: Denies abdominal pain, Denies diarrhea, Denies nausea and Denies vomiting *Genitourinary Genitourinary: Reports urinary incontinence *Musculoskeletal Musculoskeletal: Reports arthralgias and Reports myalgias *Neurologic Neurologic: Denies confusion and Reports weakness Psychiatric Psychiatric: Denies confusion Endocrine Endocrine: Denies palpitations Allergic/Immunologic Allergic/Immunologic: Reports wheezing Meds Home Medications and Allergies Home Medications Medication Instructions Recorded Confirmed Type Lactobacillus acidophilus and 1 cap PO DAILY Supplement 10/23/22 02/12/23 History rhamnosus 10 billion cell capsule (Digestive Health Probiotic) cholecalciferol (vitamin D3) 125 125 mcg PO DAILY Supplement 10/23/22 02/12/23 History mcg (5,000 unit) capsule ketoconazole 2 % topical cream 1 applic topical DAILY Skin 11/04/22 02/12/23 History condition celecoxib 100 mg capsule 100 mg PO DAILY Pain 90 days #90 12/23/22 02/12/23 Rx caps amoxicillin 500 mg-potassium 1 tab PO TID #7 tabs 02/12/23 Rx clavulanate 125 mg tablet (Augmentin) escitalopram oxalate 20 mg tablet 20 mg PO DAILY Mood 02/12/23 02/12/23 History (Lexapro) gabapentin 300 mg capsule 300 mg PO QID Pain 02/12/23 02/12/23 History losartan 50 mg
--- NOTE | 2023-02-12 18:32 | ECG_ITS ---
APPROVED REPORT Exam: Resting ECG HR:86 bpm ECG Measurements Heart Rate 86 AXES IN 158 P 24 QRSd 92 QRS 33 QT 371 T 60 QTc 415 Conclusion SINUS RHYTHM WITH OCCASIONAL ECTOPIC PREMATURE COMPLEXES BORDERLINE ECG UNCONFIRMED REPORT Electronically signed by : Issa Zavaleta MD 02/12/2023 21:14:42
--- NOTE | 2023-02-12 18:53 | PC.NURSE ---
RESP NOTE induced sputum. sputum collected and sent to lab at 1844.
[2023-02-12 19:55] LABS: ABG Base Excess -7.1 mmol/L (-2.4-2.3); ABG HCO3 17.8 mmhg (22.0-26.0); ABG Oxygen Saturation 93 % (90-100); ABG PCO2 30.2 mmhg (35.0-45.0); ABG PH 7.39 mmol/L (7.35-7.45); ABG PO2 70.2 mmhg (80-100); ABG TCO2 18.8 mmhg (23-27); Oxygen ROOM AIR %
[2023-02-12 19:56] LABS: Allen's Test Acceptable; Source Right Radial
[2023-02-12 22:05] LABS: Troponin I < 0.01 ng/ml (0.00-0.034)
[2023-02-13] VITALS (10 sets, daily range): BP systolic 115–167; BP diastolic 71–99; PULSE 78–100; RESP 17–22; TEMP 36.6–37.2; O2SAT 93–98; BMI 26.0
[2023-02-13 00:12] LABS: Troponin I < 0.01 ng/ml (0.00-0.034)
--- NOTE | 2023-02-13 07:55 | HMH.PHAINT1 ---
Pharmacy Intervention Comments: Verified home medication list from list from outside pharmacy and patient.
--- NOTE | 2023-02-13 09:03 | EXP.PN ---
Subjective *Date: 02/13/23 *Time: 09:03 Interval history: Date of service February 13, 2023 The patient reports no acute events overnight. She is requesting something for her cough. She is tolerating her IV antibiotic with no adverse events. Nursing staff report that she remains afebrile with stable vital signs and saturating appropriately on room air. Her blood pressures have improved. CT of her chest identified lingular pneumonia. Exam Data for Last 24 hours Vital signs and Labs for Last 24 Hours: Temp Pulse Resp BP Pulse Ox 98.9 F 91 H 18 144/79 H 96 02/13/23 08:00 02/13/23 08:00 02/13/23 08:00 02/13/23 08:00 02/13/23 08:00 Laboratory Results - last 24 hr 02/12/23 12:45: WBC 12.6 H, RBC 4.73, Hgb 12.7, Hct 38.7, MCV 81.9, MCH 26.8 L, MCHC 32.7, RDW 15.2, Plt Count 396, MPV 7.9, Neut % (Auto) 83.3 H, Lymph % (Auto) 7.2 L, [place] % (Auto) 7.7, Eos % (Auto) 1.4, Baso % (Auto) 0.4, Neut # (Auto) 10.5 H, Lymph # (Auto) 0.9, [place] # (Auto) 1.0, Eos # (Auto) 0.2, Baso # (Auto) 0.1 02/12/23 12:45: Sodium 135 L, Potassium 4.0, Chloride 95 L, Carbon Dioxide 25, Anion Gap 19.0 H, BUN 14, Creatinine 0.70, Estimated Creat Clear 57, Estimated GFR 80, Est GFR ( Amer) 97, Glucose 131 H, Calcium 8.8, Total Bilirubin 0.4, AST 22, ALT 21, Alkaline Phosphatase 92, Total Protein 7.1, Albumin 3.9, Globulin 3.2, Albumin/Globulin Ratio 1.2 02/12/23 14:58: Urine Color Yellow, Urine Appearance Cloudy, Urine pH 5.5, Ur Specific [place] 1.015, Urine Protein Trace, Urine Glucose (UA) Negative, Urine Ketones Negative, Urine Blood Trace-i, Urine Nitrate Negative, Urine Bilirubin Negative, Urine Urobilinogen 1.0, Ur Leukocyte Esterase 2+ A, Urine RBC 3-5, Urine WBC 20-50, Ur Squamous Epith Cells 3-5, Urine Bacteria 4+ 02/12/23 16:53: SARS-CoV-2 (PCR) Not detected, Influenza A Untype (PCR) Not detected, Influenza Type B (PCR) Not detected 02/12/23 17:42: Specimen Source Right radial, O2 % Room air, ABG pH 7.39, ABG pCO2 30.2 L, ABG pO2 70.2 L, ABG HCO3 17.8 L, ABG Total CO2 18.8 L, ABG O2 Saturation 93, ABG Base Excess -7.1 L, David Test Acceptable 02/12/23 20:55: Troponin I < 0.01 02/12/23 23:30: Troponin I < 0.01 I & O for Last 24 hours: Intake & Output 02/10/23 02/11/23 02/12/23 02/13/23 23:59 23:59 23:59 23:59 Intake Total 540 / 540 Output Total 300 / 650 650 / 650 Balance -300 / -650 -110 / -110 Weight 82.639 kg 82.582 kg Microbiology Reports for the Last 24 Hours: Microbiology 02/12/23 18:44 Sputum - Expectorated Sputum Gram Stain - Final Constitutional Constitutional: no acute distress and cooperative *Routine HEENT Exam Head: Present normocephalic Eye: Present EOMI and PERRL ENT: Present mucous membranes moist *Routine Neck Exam Neck: Present supple; Absent lymphadenopathy *Routine Respiratory Exam Respiratory: Present rhonchi, wheezes, normal respiratory effort and symmetric chest movement *Routine Cardiovascular Exam Cardiovascular: Present RRR *Routine Abdominal Exam Abdominal: Present soft and normoactive bowel sounds; Absent tenderness *Routine Extremities Exam Extremities: Absent cyanosis, clubbing or edema *Routine Skin Exam Skin: Present warm; Absent rash *Routine Neurological Exam Neurological: Present alert, oriented X3, moving all extremities, vision grossly intact, hearing grossly intact and normal speech; Absent sensory deficit or motor deficit Routine Psychiatric Exam Psychiatric: Present normal affect, normal thought process, cooperative, good insight and good judgment Assessment and Plan *Assessment and plan (1) Hypotension: Status: Acute Category: Medical Code(s): I95.9 - Hypotension, unspecified (2) COPD exacerbation: Status: Acute Category: Medical Code(s): J44.1 - Chronic obstructive pulmonary disease with (acute) exacerbation (3) UTI (urinary tract infection): Status: Acute Qualifiers: Hematuria presence: without hematuria
--- NOTE | 2023-02-13 13:34 | HMH.OTEV ---
OT Inpatient Evaluation Rehab OT IP Evaluation Start: 02/13/23 10:43 Freq: ONCE Status: Active Protocol: [facility]13/23 13[facility] (Rec: 02/13/23 13:34 [facility] [id number]) Rehab OT IP Assessment Subjective History Pt oriented x 3 on arrival. Pt agreeable to engage in therapy evaluation. Pt was admitted on 02/12/23 due to a UTI. Prior to being in the hospital, pt lived at home alone. Pt had sitters that came daily. Pt reports she required assistance with Bathing and dressing. She was able to feed herself independently. She was dependent on sitters to complete all IADLS such as cleaning, cooking, laundry, grocery shopping etc. Pt did not ambulate. At times she claims she required assistance with transferring to and from her wheelchair. Pt has a past medical history of: Acid reflux COPD (chronic obstructive pulmonary disease) Hyperlipidemia Osteoarthritis Raynaud disease Tobacco dependence in remission Subjective I normally need help with it all. Objective Patient Orientation Person,Place,Birthday Upper Extremity Gross ROM WFL Bed Mobility bed mobility-scooting,bed mobility - supine/sit Assist Level Moderate x 2 (50% assist) Transfer Training Sit/Stand/Pivot Transfer Assist Level Maximum x 2 (75% assist) Chair Transfer Ability Maximum x 2 (75% assist) Chair Transfer Technique Squat Pivot Rehab OT IP prob,goals,plan Problems Date of Evaluation: 02/13/23 OT IP Problems Bed Mobility,Transfers,Balance ,Self care,Safety Rehab Potential Rehab Potential Good Equipment Needs Assistive Devices Rolling / Wheeled Walker, Wheelchair Plan OT intervention Plan Bed Mobility,Transfers,Balance
--- NOTE | 2023-02-13 13:49 | HMH.PTEV ---
Physical Therapy Evaluation Rehab PT IP Evaluation Start: 02/13/23 10:43 Freq: ONCE Status: Active Protocol: Document 02/13/23 13:41 NEGR[facility]O (Rec: 02/13/23 13:48 [facility] [id number]) Subjective/History History History 82 yowf adm to [facility] with UTI and PMH of COPD. She reports she lives alone, but has daily assistance from caretakers. She uses a w/c for all mobility and requires assist with all transfers. Subjective Subjective Pt c/o feeling worn out, but no specific c/o pain or weakness. Rehab PT IP Eval Objective Appearance Patient Behavior Appropriate Patient Orientation Person,Place,Time Difficulty following instructions none Speech Pattern Clear Balance Ability to Arise Unable Sitting Balance Leans or slides in chair Standing Balance Unsteady Dynamic Sitting Balance Ability Poor Dynamic Standing Balance Ability Poor Transfers Bed Transfer Ability Maximum x 2 (75% assist) Chair Transfer Ability Maximum x 2 (75% assist) Sit to Stand Bed Transfer Ability Maximum x 2 (75% assist) Sit to Stand Chair Transfer Ability Maximum x 2 (75% assist) Rehab PT IP prob,goals,plan Problems Date of Evaluation: 02/13/23 PT IP Problems Bed Mobility,Transfers Rehab Potential Rehab Potential Fair Plan PT Intervention Plan Bed Mobility,Transfers, Therapeutic Exercise PT Plan Frequency Daily Duration LOS Discharge Goals Bed Transfer Ability Maximum x 1 (75% assist) Sit to Stand Chair Transfer Ability Maximum x 1 (75% assist) Discharge Plan PT Discharge Plan Pt is currently most appropriate for SNF placement once medically stable for d/c. G -code Required No Eval Complexity Eval Charge Codes 82320 - Moderate Complexity PHYSICIAN CERTIFICATION: I certify the specified therapy services for Jelly Chavez are required, authorized, and reviewed every 30 days.
--- NOTE | 2023-02-13 14:39 | SW/DCPLANNER ---
Addendum entered by Yuridia Woods 02/17/23 12:48: Patient discharged to [facility] level of care on 02/15/23. Addendum entered by Yuridia Woods 02/14/23 10:20: Carla hutchins/ [facility] has started a prior auth on this patient. Addendum entered by Yuridia Woods 02/14/23 09:05: [facility] is onsite evaluating this patient. Pending insurance Carla can accept this patient at [facility]. Original Note: I spoke with this patient regarding plans once medically stable for discharge. PT evaluated patient and recommended SNF at time of discharge. Patient stated that she has been to [facility] in the past and would be interested in returning to this facility. We also discussed other options but patient stated that she has been there in the past but is not interested in returning back: [facility] and [facility].
[2023-02-13 16:25] LABS: Basophils % 0.1 % (0.1-2.0); Chloride 97 mmol/L (98-107); Hemoglobin 10.8 g/dL (12.2-16.2); Lymphocytes # 0.7 K/mm3 (0.7-4.5); Lymphocytes % 6.4 % (10-50); Mean Corpuscular HGB Conc 32.8 g/dL (31.8-35.4); Mean Corpuscular Hemoglobin 26.2 pg (27.0-31.2); Mean Corpuscular Volume 80.1 fl (81-99); Mean Platelet Volume 7.7 fl (7.4-10.4); Monocytes # 0.4 K/mm3 (0.1-1.0); Monocytes % 3.5 % (1.7-9.3); Neutrophils # 9.8 K/mm3 (1.8-7.8); Neutrophils % 89.9 % (37.0-80.0); Platelet Count 370 K/mm3 (142-424); Red Blood Count 4.12 M/mm3 (4.20-5.40); Red Cell Distribution Width 15.3 % (11.5-17.5); Sodium 133 mmol/L (136-145); White Blood Count 10.9 K/mm3 (4.8-10.8)
[2023-02-13 16:28] LABS: Blood Urea Nitrogen 8 mg/dl (7-17); Calcium 8.5 mg/dl (8.4-10.2); Carbon Dioxide 22 mmol/L (22.0-30.0); Creatinine Clearance Estimated 57 mL/min (50-200); Estimated Glomerular Filt Rate 118 ml/min (>60); GFR (African American) 143 ML/MIN (>60); Glucose 144 mg/dl (74-100)
[2023-02-13 16:31] LABS: MANUAL DIFFERENTIAL MANUAL DIFFERENTIAL (MANUAL DIFF)
--- NOTE | 2023-02-13 16:46 | PC.NURSE ---
Patient very anxious during shift. Patient has a loud barking cough and multiple prn medications given with some relief noted. VS stable and pt remained on room air. Headache treated with acetaminophen. Large bowel movement.
[2023-02-13 16:54] LABS: Hypochromasia 2+; Lymphocytes % 12 % (10-50); Microcytosis 1+; Monocytes % 1 % (2-9); Neutrophils % 87 % (42-76); Platelet Estimate Normal; Total Cells Counted 100
[2023-02-14] VITALS (9 sets, daily range): BP systolic 119–157; BP diastolic 71–88; PULSE 84–101; RESP 16–18; TEMP 36.4–37.1; O2SAT 90–96; BMI 27.3
--- NOTE | 2023-02-14 04:14 | PC.NURSE ---
Patient is alert and oriented x4. Patient had an incontinent bowel movement and appears to be incontinent of her bladder. Patient lung sounds have fine crackles throughout. Patient has an unproductive cough. No acute events thus far.
[2023-02-14 06:16] LABS: Basophils % 0.2 % (0.1-2.0); Eosinophils % 0.2 % (0.1-12.0); Hematocrit 31.5 % (37.0-47.0); Hemoglobin 10.4 g/dL (12.2-16.2); Lymphocytes # 1.1 K/mm3 (0.7-4.5); Lymphocytes % 11.6 % (10-50); Mean Corpuscular HGB Conc 32.9 g/dL (31.8-35.4); Mean Corpuscular Hemoglobin 27.1 pg (27.0-31.2); Mean Corpuscular Volume 82.3 fl (81-99); Monocytes # 0.8 K/mm3 (0.1-1.0); Monocytes % 7.8 % (1.7-9.3); Neutrophils # 7.8 K/mm3 (1.8-7.8); Neutrophils % 80.2 % (37.0-80.0); Platelet Count 398 K/mm3 (142-424); Red Blood Count 3.83 M/mm3 (4.20-5.40); Red Cell Distribution Width 15.3 % (11.5-17.5); White Blood Count 9.7 K/mm3 (4.8-10.8)
[2023-02-14 06:27] LABS: Anion Gap 15.7 mEq/L (5-15); Blood Urea Nitrogen 7 mg/dl (7-17); Calcium 8.3 mg/dl (8.4-10.2); Carbon Dioxide 22 mmol/L (22.0-30.0); Chloride 102 mmol/L (98-107); Creatinine Clearance Estimated 59 mL/min (50-200); Estimated Glomerular Filt Rate 153 ml/min (>60); GFR (African American) 185 ML/MIN (>60); Glucose 100 mg/dl (74-100); Potassium 3.7 mmoL/L (3.5-5.1); Sodium 136 mmol/L (136-145)
--- NOTE | 2023-02-14 15:17 | EXP.PN ---
Subjective *Date: 02/14/23 *Time: 15:17 Interval history: Date of service February 14, 2023 The patient reports that she is feeling better. Nursing staff report that she remains afebrile with stable vital signs and saturating appropriately on room air. The patient reports ongoing intermittent cough that has improved. She is tolerating her antibiotic therapy with no adverse events. PT and OT have assessed the patient and have identified rehab potential. Exam Data for Last 24 hours Vital signs and Labs for Last 24 Hours: Temp Pulse Resp BP Pulse Ox 97.8 F 99 H 18 136/74 94 L 02/14/23 11:34 02/14/23 11:34 02/14/23 11:34 02/14/23 11:34 02/14/23 11:34 Laboratory Results - last 24 hr 02/13/23 16:06: WBC 10.9 H, RBC 4.12 L, Hgb 10.8 L, Hct 33.0 L, MCV 80.1 L, MCH 26.2 L, MCHC 32.8, RDW 15.3, Plt Count 370, MPV 7.7, Neut % (Auto) 89.9 H, Lymph % (Auto) 6.4 L, [place] % (Auto) 3.5, Eos % (Auto) 0.0 L, Baso % (Auto) 0.1, Neut # (Auto) 9.8 H, Lymph # (Auto) 0.7, [place] # (Auto) 0.4, Eos # (Auto) 0.0, Baso # (Auto) 0.0, Total Counted 100, Neutrophils % (Manual) 87 H, Lymphocytes % (Manual) 12, Monocytes % (Manual) 1 L, Platelet Estimate Normal, Hypochromasia 2+, Microcytosis 1+ 02/13/23 16:06: Sodium 133 L, Potassium 4.0, Chloride 97 L, Carbon Dioxide 22, Anion Gap 18.0 H, BUN 8 D, Creatinine 0.50 L D, Estimated Creat Clear 57, Estimated GFR 118, Est GFR ( Amer) 143 D, Glucose 144 H, Calcium 8.5 02/14/23 05:48: WBC 9.7, RBC 3.83 L, Hgb 10.4 L, Hct 31.5 L, MCV 82.3, MCH 27.1, MCHC 32.9, RDW 15.3, Plt Count 398, MPV 8.0, Neut % (Auto) 80.2 H, Lymph % (Auto) 11.6, [place] % (Auto) 7.8, Eos % (Auto) 0.2, Baso % (Auto) 0.2, Neut # (Auto) 7.8, Lymph # (Auto) 1.1, [place] # (Auto) 0.8, Eos # (Auto) 0.0, Baso # (Auto) 0.0 02/14/23 05:48: Sodium 136, Potassium 3.7, Chloride 102, Carbon Dioxide 22, Anion Gap 15.7 H, BUN 7, Creatinine 0.40 L, Estimated Creat Clear 59, Estimated GFR 153, Est GFR ( Amer) 185 D, Glucose 100 D, Calcium 8.3 L I & O for Last 24 hours: Intake & Output 02/11/23 02/12/23 02/13/23 02/14/23 23:59 23:59 23:59 23:59 Intake Total 980 / 980 2077 / 2077 Output Total 300 / 650 1000 / 1500 1100 / 1100 Balance -300 / -650 -20 / -520 977 / 977 Weight 82.639 kg 82.58 kg 86.438 kg Microbiology Reports for the Last 24 Hours: Microbiology 02/12/23 14:58 Urine,Catheterized Urine Culture - Final Klebsiella pneumoniae Constitutional Constitutional: no acute distress and cooperative *Routine HEENT Exam Head: Present normocephalic Eye: Present EOMI and PERRL ENT: Present mucous membranes moist *Routine Neck Exam Neck: Present supple; Absent lymphadenopathy *Routine Respiratory Exam Respiratory: Present rhonchi, wheezes, normal respiratory effort and symmetric chest movement *Routine Cardiovascular Exam Cardiovascular: Present RRR *Routine Abdominal Exam Abdominal: Present soft and normoactive bowel sounds; Absent tenderness *Routine Extremities Exam Extremities: Absent cyanosis, clubbing or edema *Routine Skin Exam Skin: Present warm; Absent rash *Routine Neurological Exam Neurological: Present alert, oriented X3, moving all extremities, vision grossly intact, hearing grossly intact and normal speech; Absent sensory deficit or motor deficit Routine Psychiatric Exam Psychiatric: Present normal affect, normal thought process, cooperative, good insight and good judgment Assessment and Plan *Assessment and plan (1) Hypotension: Status: Acute Category: Medical Code(s): I95.9 - Hypotension, unspecified (2) COPD exacerbation: Status: Acute Category: Medical Code(s): J44.1 - Chronic obstructive pulmonary disease with (acute) exacerbation (3) UTI (urinary tract infection): Status: Acute Qualifiers: Hematuria presence: without hematuria Urinary tract infection type: acute cystitis Qualified Code(s): N30.00 - Acute cystitis wit
--- NOTE | 2023-02-14 18:21 | PC.NURSE ---
pt informed that she was accepted to [facility] for rehab. pt medicated for cough this shift.
[2023-02-15] VITALS: BP 154/84; PULSE 98; RESP 18; TEMP 36.6; O2SAT 94
[2023-02-15 04:00] VITALS: BP 156/87; PULSE 87; RESP 18; TEMP 36.6; O2SAT 93; BMI 27.8
--- NOTE | 2023-02-15 07:16 | EXP.DC.SUM ---
General Admission date:: 02/12/23 Discharge date: 02/15/23 HPI HPI HPI: This is an 82-year-old female that presents to [facility] emergency department with concerns of a cough over a week not improving. Her past medical history is significant for tobacco use of > 50 years 1 pack/day. She reports that she quit 3 years ago. She describes a croupy cough that has gotten worse over the last couple days. She is now expectorating green phlegm. She denies associated hemoptysis. She reports increased dyspnea with exertion. She denies associated retrosternal chest pain or palpitations. She reports the cough is causing urinary incontinence. She voices concerns with a UTI. In the ED she is afebrile with Pulse ox in the low 90s on room air. Her CBC identifies a leukocytosis. Her chest x-ray identifies no infiltrate. She is and lives alone in [place] but hire sitters to help her (Dia Connor). Hospital Course Hospital Course Hospital Course: The patient was admitted to the medical unit with routine lab and inflammatory evaluation. With her hypotension her blood pressures were routinely monitored and her home medications were held. Subsequently her blood pressures improved. Concerns for overuse of home medication was included in the differential diagnoses. A CT scan of the chest identified a lingular pneumonia and she received antibiotic therapy and her inflammatory markers improved. The patient saturated appropriately on room air. Her cough improved. Her urinary tract infection was treated as well. The patient identified improvement and we requested ambulatory evaluations per contracts analyst concerns. PT and OT identify deficiency and recommended transition of care to [facility] facility. Case management assisted with next site of care and the patient was amendable to transition her care for rehab. She will be discharged with a short course of antibiotic therapy, inhalation therapy and instructions to see her PCP in 1 week. Her care will be transition to the [facility] for ongoing strengthening and rehab. I spent 35 minutes in [id number] time with the patient and nursing staff concerning the discharge process. We discussed the admitting diagnoses and hospital course. We discussed identified improvement and the patient's desire to be discharged. We reviewed inpatient studies and imaging. The patient voiced understanding on the importance of follow-up with her primary care provider and specialist(s). The patient plans to be compliant with the medication regimen prescribed and follow-up appointments. She understands that she can return to the emergency department with any sudden changes or concerns. Exam Data for Last 24 hours Vital signs and Labs for Last 24 Hours: Temp Pulse Resp BP Pulse Ox 97.9 F 87 18 156/87 H 93 L 02/15/23 04:00 02/15/23 04:00 02/15/23 04:00 02/15/23 04:00 02/15/23 04:00 I & O for Last 24 hours: Intake & Output 02/12/23 02/13/23 02/14/23 02/15/23 23:59 23:59 23:59 23:59 Intake Total 980 / 980 2677 / 2677 Output Total 300 / 650 1000 / 1500 2050 / 0 1100 / 1100 Balance -300 / -650 -20 / -520 627 / 627 -1100 / -1100 Weight 82.639 kg 82.58 kg 86.438 kg 88.178 kg Microbiology Reports for the Last 24 Hours: Microbiology 02/12/23 17:06 Blood Blood Culture - Preliminary NO GROWTH AFTER 48 HOURS 02/12/23 17:06 Blood Blood Culture - Preliminary NO GROWTH AFTER 48 HOURS 02/12/23 14:58 Urine,Catheterized Urine Culture - Final Klebsiella pneumoniae Constitutional Constitutional: no acute distress and cooperative *Routine HEENT Exam Head: Present normocephalic Eye: Present EOMI and PERRL ENT: Present mucous membranes moist *Routine Neck Exam Neck: Present supple; Absent lymphadenopathy *Routine Respiratory Exam Respiratory: Present rhonchi, wheezes, normal
[2023-02-15 08:00] VITALS: BP 146/84; PULSE 98; RESP 16; TEMP 36.7; O2SAT 93; O2SAT 95
--- NOTE | 2023-02-15 08:24 | PC.NURSE ---
0745- ATTEMPTED TO CALL REPORT TO YAHAIRA AT [facility]. NO ANSWER AT FACILITY. WILL CALL BACK.
== END 2023-02-15 10:13 ==
LOC: ER 16:37 → 2ND 16:46
PROVIDERS: Admitting Provider Family Medicine; Emergency Provider Emergency Medicine; PCP Family Medicine; Visit Provider Family Medicine
DX: I95.9 Hypotension, unspecified (principal); Z79.899 Other long term (current) drug therapy; J44.1 Chronic obstructive pulmonary disease with (acute) exacerbation; Z87.891 Personal history of nicotine dependence; N39.0 Urinary tract infection, site not specified; Z20.822 Contact with and (suspected) exposure to COVID-19
CPT/HCPCS: G0378; 36415; 71045; 71250; 80048; 80053; 81001; 82803; 84484; 85007; 85025; 87040; 87070; 87077; 87086; 87088; 87186; 87205; 93005; 93306; 94640; 97162; 97166; 97530; 97535; 99285; C9803; J0696; U0003; U0005

== ENCOUNTER 2023-11-28 08:43 | Observation (INO) | payer MEDICARE, SELFPAY ==
[2023-11-28] VITALS (16 sets, daily range): BP systolic 93–122; BP diastolic 43–71; PULSE 78–98; RESP 18–20; TEMP 36.4–36.9; O2SAT 90–98; BMI 30.2; BMI 28.1
--- NOTE | 2023-11-28 09:01 | XR_ITS ---
FINAL REPORT TECHNIQUE: Single view chest CLINICAL HISTORY: fever, cough COMPARISON: 02/12/2023 FINDINGS: A single view of the chest was obtained. The heart and mediastinum are within normal limits. The lungs are clear. There is no pneumothorax. Osseous structures demonstrate advanced osteoarthritis of the right shoulder. IMPRESSION: No acute cardiopulmonary process. Reviewed, Interpreted and Dictated by Donal López MD Transcribed by Cris Cha Authenticated and [facility]
[2023-11-28 09:06] LABS: Coronavirus 19, PCR Not Detected (NotDetected); Influenza A, PCR Not Detected (NotDetected); Influenza B, PCR Not Detected (NotDetected)
--- NOTE | 2023-11-28 09:06 | PC.NURSE ---
DR PAULA AT BEDSIDE
[2023-11-28 09:11] LABS: Basophils % 0.2 % (0.1-2.0); Chloride 104 mmol/L (98-107); Eosinophils # 0.1 K/mm3 (0.0-0.4); Eosinophils % 0.4 % (0.1-12.0); Hematocrit 38.2 % (37.0-47.0); Hemoglobin 12.4 g/dL (12.2-16.2); Lymphocytes # 1.4 K/mm3 (0.7-4.5); Mean Corpuscular HGB Conc 32.4 g/dL (31.8-35.4); Mean Corpuscular Hemoglobin 29.5 pg (27.0-31.2); Mean Platelet Volume 7.9 fl (7.4-10.4); Monocytes # 0.9 K/mm3 (0.1-1.0); Neutrophils # 8.9 K/mm3 (1.8-7.8); Neutrophils % 79.3 % (37.0-80.0); Platelet Count 268 K/mm3 (142-424); Red Cell Distribution Width 14.3 % (11.5-17.5); White Blood Count 11.2 K/mm3 (4.8-10.8)
[2023-11-28 09:12] LABS: Potassium 3.9 mmoL/L (3.5-5.1); Sodium 133 mmol/L (136-145)
--- NOTE | 2023-11-28 09:12 | HMH.EDGENADL ---
Discharge Plan Disposition Patient Disposition: Admitted Clinical Impressions Clinical Impression: Pneumonia, Acute UTI, AMS (altered mental status), General weakness, Acute hypoxemic respiratory failure Discharge ED Provider: Kathleen Kerr General Adult HPI General Chief complaint: Fever Stated complaint: fever,confused Time Seen by Provider: 11/28/23 08:45 Mode of Arrival: EMS Source of Information: Patient Limitations: No Limitations Description of Symptoms (Recalled from ER Triage Doc. by RN): pt c/o N/V, fever, and weakness x3d. EMS gave the pt 4mg zofran IV and 500ml saline bolus MENTAL HEALTH NURSE PRACTITIONER. EMS reports the pt is confused and A&O at baseline. PT is A&O x4 with a GCS of 15 upon arrival. EMS states the daughter gave the pt tylenol MENTAL HEALTH NURSE PRACTITIONER. PT is on RA at baseline, RA sat was 90% here. PT is 96% on 2LNC placed the pt back on 2LNC, EMS had as well. Pt is afebrile at this time at 98F. History of Present Illness HPI narrative: This patient is an 83-year-old female with history of tobacco dependence, hyperlipidemia, GERD, Sjogren's syndrome, neuropathy, and Raynaud's syndrome presented to the emergency department for evaluation with concern for fever, nausea, vomiting, and weakness for 3 days. Patient also notes that she has had a cough. She denies any associated chest pain, abdominal pain, or other concerns. She states that overall she just not feeling well. Emesis is nonbloody nonbilious. Patient arrives by EMS, and per EMS she was hemodynamically stable en route. They note that she has reportedly been confused at home but is alert and oriented at baseline. Patient is alert and oriented at this time. Prior to EMS arrival, the daughter gave the patient Tylenol. MSK the patient Zofran and a 500 cc bolus of IV fluids. Related Data Home Medications Medication Instructions Recorded Confirmed aspirin 81 mg tablet,delayed 81 mg PO DAILY Heart Health 11/20/23 11/28/23 release cyanocobalamin (vitamin B-12) 5,000 mcg PO DAILY Supplement 11/20/23 11/28/23 5,000 mcg disintegrating tablet melatonin 10 mg capsule 10 mg PO HSP PRN Sleep 11/20/23 11/28/23 albuterol sulfate 90 mcg/actuation 1 puff inhalation QIDP PRN 11/28/23 11/28/23 aerosol inhaler shortness of breath or wheezing cyclosporine 0.05 % eye drops 1 drp ophthalmic (eye) BIDP PRN 11/28/23 11/28/23 (Restasis MultiDose) Dry Eyes lactulose 10 gram/15 mL oral 15 ml PO DAILYP PRN constipation 11/28/23 11/28/23 solution meloxicam 7.5 mg tablet 15 mg PO DAILY Pain 11/28/23 11/28/23 pantoprazole 40 mg tablet,delayed 40 mg PO DAILY Acid Reflux 11/28/23 11/28/23 release Previous Rx's Medication Instructions Recorded gabapentin 300 mg capsule 300 mg PO QID Pain #120 caps 10/31/23 pravastatin 20 mg tablet 20 mg PO DAILY Cholesterol #90 tabs 11/20/23 tolterodine 4 mg capsule,extended 4 mg PO DAILY overactive bladder 11/20/23 release 24 hr #90 caps Allergies Allergy/AdvReac Type Severity Reaction Status Date / Time No Known Allergies Allergy Verified 11/28/23 14:37 [facility] Disclaimer: The information contained in this section may have been updated after the patient was seen, as this information can be updated by other users. Medical History Acid reflux COPD (chronic obstructive pulmonary disease) Hyperlipidemia Osteoarthritis Raynaud disease Tobacco dependence in remission Surgical History H/O laminectomy History of appendectomy History of dilation and curettage History of total right knee replacement Family History Mother CHF (congestive heart failure) Father Coronary artery disease Social History (Updated 11/28/23 @ 14:46 by Emma Meadows RN) Smoking Status: Never smoker years smoked: 50 smoking status stop date: 2019 second hand exposure: Yes alcohol intake: never substance use type: denies use current occupational status: retired Travel in the last 8 weeks: None housing: house lives independently: No marital status: caffeine: Yes ROS Obtained: Yes All systems reviewed & no additional complaints except as documented Physical Exam General General appearance: alert and in no apparent distress Head Head exam: atraumatic and normocephalic Eye Eye exam: Present normal appearance, PERRL and EOMI ENT ENT exam: Present normal exam, normal oropharynx, mucous membranes moist and normal external ear exam Neck Neck exam: Present normal inspection, full ROM and trachea midline; Absent tenderness Chest Chest inspection: Present normal inspection and symmetric chest wall rise; Absent tenderness Respiratory Respiratory exam: Present other (Diminished breath sounds in the right base, but otherwise normal respiratory exam); Absent respiratory distress, wheezes, stridor or accessory muscle use Cardiovascular Cardiovascular exam: Present regular rate and normal rhythm Abdominal Exam Abdominal exam: Present soft and normal bowel sounds; Absent distention, tenderness, guarding, rebound or rigidity Extremities Exam Extremities exam: Present normal inspection, full ROM and normal capillary refill; Absent tenderness or edema Back Exam Back exam: Present normal inspection and full ROM; Absent tenderness Neurological Exam Neurological exam: Present alert, oriented X3, CN II-XII intact and normal gait; Absent motor sensory deficit Psychiatric Psychiatric exam: Present normal affect and normal mood Skin Skin exam: Present warm and dry Medical Decision Making Medical Records Medical records reviewed: Yes I reviewed the patient's medical records. Roel Inquiry Pt receiving controlled substance: No Vital Signs: 11/28/23 08:49 11/28/23 09:20 11/28/23 10:02 Temperature 98 F Temperature Source Oral Pulse Rate 86 92 H Pulse Rate [Left] 98 H Respiratory Rate 18 Blood Pressure 101/58 L 95/49 L Blood Pressure [Right Arm] 122/63 Blood Pressure Mean Blood Pressure Mean [Right Arm] 82 Blood Pressure Source Blood Pressure Source [Right Arm] Automatic Cuff Blood Pressure Position Blood Pressure Position [Right Arm] Sitting 02 Sat by Pulse Oximetry 90 L 96 95 Oxygen Delivery Method Room Air Nasal Cannula Nasal Cannula Oxygen Flow Rate (LPM) 2 2 11/28/23 10:30 11/28/23 11:02 11/28/23 11:37 Temperature Temperature Source Pulse Rate 92 H 88 87 Pulse Rate [Left] Respiratory Rate 18 Blood Pressure 107/59 L 115/65 93/50 L Blood Pressure [Right Arm] Blood Pressure Mean 75 Blood Pressure Mean [Right Arm] Blood Pressure Source Blood Pressure Source [Right Arm] Blood Pressure Position Blood Pressure Position [Right Arm] 02 Sat by Pulse Oximetry 94 L 96 92 L Oxygen Delivery Method Nasal Cannula Nasal Cannula Oxygen Flow Rate (LPM) 2 11/28/23 12:00 11/28/23 12:30 11/28/23 13:00 Temperature Temperature Source Pulse Rate 91 H 84 85 Pulse Rate [Left] Respiratory Rate 18 Blood Pressure 101/57 L 113/62 122/69 Blood Pressure [Right Arm] Blood Pressure Mean 68 Blood Pressure Mean [Right Arm] Blood Pressure Source Blood Pressure Source [Right Arm] Blood Pressure Position Blood Pressure Position [Right Arm] 02 Sat by Pulse Oximetry 96 94 L 95 Oxygen Delivery Method Room Air Room Air Oxygen Flow Rate (LPM) 11/28/23 13:30 11/28/23 14:08 11/28/23 14:00 Temperature 97.5 F L Temperature Source Oral Pulse Rate 85 80 78 Pulse Rate [Left] Respiratory Rate 18 18 Blood Pressure 106/71 L 101/70 L 101/70 L Blood Pressure [Right Arm] Blood Pressure Mean 89 Blood Pressure Mean [Right Arm] Blood Pressure Source Automatic Cuff Blood Pressure Source [Right Arm] Blood Pressure Position Sitting Blood Pressure Position [Right Arm] 02 Sat by Pulse Oximetry 96 97 Oxygen Delivery Method Room Air Room Air Oxygen Flow Rate (LPM) Lab Data Lab results reviewed: Yes I reviewed the patient's lab results. Lab Results 11/28/23 08:52: WBC 11.2 H, RBC 4.20, Hgb 12.4, Hct 38.2, MCV 91.0, MCH 29.5, MCHC 32.4, RDW 14.3, Plt Count 268, MPV 7.9, Neut % (Auto) 79.3, Lymph % (Auto) 12.0, [place] % (Auto) 8.0, Eos % (Auto) 0.4, Baso % (Auto) 0.2, Neut # (Auto) 8.9 H, Lymph # (Auto) 1.4, [place] # (Auto) 0.9, Eos # (Auto) 0.1, Baso # (Auto) 0.0, Sodium 133 L, Potassium 3.9, Chloride 104, Carbon Dioxide 26, Anion Gap 6.9, BUN 11, Creatinine 0.50 L, Estimated Creat Clear 63, Estimated GFR 118, Est GFR ( Amer) 143, Glucose 120 H, Lactate 1.3, Calcium 8.2 L, Total Bilirubin 0.4, AST 22, ALT 18, Alkaline Phosphatase 77, Total Protein 5.6 L, Albumin 3.2 L, Globulin 2.4, Albumin/Globulin Ratio 1.3, Lipase 23, SARS-CoV-2 (PCR) Not detected, Influenza A Untype (PCR) Not detected, Influenza Type B (PCR) Not detected 11/28/23 10:13: VBG pH 7.38, VBG pCO2 39.8, VBG pO2 73.0 H, VBG HCO3 22.9 L, VBG Total CO2 24.1, VBG O2 Saturation 94.4 H, VBG Base Excess -2.3 11/28/23 10:58: Urine Color Yellow, Urine Appearance Cloudy, Urine pH 6.0, Ur Specific [place] 1.020, Urine Protein Trace, Urine Glucose (UA) Negative, Urine Ketones Negative, Urine Blood 1+, Urine Nitrate Negative, Urine Bilirubin Negative, Urine Urobilinogen 1.0, Ur Leukocyte Esterase 2+ A, Urine RBC 5-10, Urine WBC Tntc, Ur Squamous Epith Cells 3-5, Urine Bacteria 4+ 11/28/23 14:03: Ammonia < 9 L 11/28/23 08:52 11/28/23 08:52 Orders (Tests/Meds): ED MEDICATIONS Generic Name Dose Route Start Last Admin Trade Name Freq PRN Reason Stop Dose Admin Ceftriaxone Sodium 2 gm/ 100 mls @ 200 mls/hr 11/28/23 12:15 11/28/23 12:18 Sodium Chloride IV 12/08/23 12:14 200 mls/hr Q24H JORGE Administration Discontinued Medications Generic Name Dose Route Start Last Admin Trade Name Freq PRN Reason Stop Dose Admin Acetaminophen 1,000 mg 11/28/23 13:03 11/28/23 13:20 Acetaminophen 500mg Tab PO 11/28/23 13:04 1,000 mg ONCE ONE Administration ORDERS Category Date Time Status XR chest portable Stat Exams 11/28/23 09:01 Completed Ammonia Stat Lab 11/28/23 14:03 Completed Complete Blood Count Auto Diff AMLAB Lab 11/29/23 06:00 Ordered Complete Blood Count Auto Diff Stat Lab 11/28/23 08:52 Completed Comprehensive Metabolic Panel AMLAB Lab 11/29/23 06:00 Ordered Comprehensive Metabolic Panel Stat Lab 11/28/23 08:52 Completed Lactic Acid Stat Lab 11/28/23 08:52 Completed Lipase Stat Lab 11/28/23 08:52 Completed Magnesium AMLAB Lab 11/29/23 06:00 Ordered Rapid PCR Covid and Flu A/B Stat Lab 11/28/23 08:52 Completed Urinalysis and Microscopic Stat Lab 11/28/23 10:58 Completed Blood Culture Stat Micro 11/28/23 09:02 Received Urine Culture Stat Micro 11/28/23 10:58 Received Venous Blood Gas Stat RT 11/28/23 10:13 Completed Medical Decision Narrative: In summary, this patient is a 83-year-old female presenting to the Emergency Department for evaluation of fever, nausea, vomiting, and cough for 3 days. Differential diagnoses considered include but are not limited to viral syndrome, gastroenteritis, pneumonia, urinary tract infection, dehydration, sepsis. Ruling out the most morbid conditions drove assessment. On exam, the patient is alert and oriented and nontoxic-appearing. She has diminished sounds in the right lung base but otherwise exam is reassuring. Abdominal exam is benign, and she has no abdominal pain. Workup included CBC, CMP, lipase, lactic acid, viral swab, chest x-ray, EKG, and urinalysis. I independently interpreted x-ray prior to the radiologist read and noted concern for possible right-sided consolidation, however radiology noted no concern for pneumonia. Please see their read for final interpretation. Labs were obtained that demonstrated mild leukocytosis as well as concerns for urinary tract infection. No other obvious acutely concerning abnormalities. Patient is intermittently confused and is too generally weak to help with transfers and care at home. Given this, family does not feel comfortable taking her home at this time. I started the patient on IV Rocephin, and I called and had an interactive discussion with Dr. Correa who admitted the patient for altered mental status in the setting of urinary tract infection. She was admitted in stable condition. Critical Care Critical Care Time Critical Care Time: No
[2023-11-28 09:14] LABS: Alanine Aminotransferase 18 U/L (12-78); Alkaline Phosphatase 77 U/L (38-126); Anion Gap 6.9 mEq/L (5-15); Aspartate Amino Transferase 22 U/L (14-36); Bilirubin,Total 0.4 mg/dl (0.2-1.3); Blood Urea Nitrogen 11 mg/dl (7-17); Carbon Dioxide 26 mmol/L (22.0-30.0); Creatinine Clearance Estimated 63 mL/min (50-200); Estimated Glomerular Filt Rate 118 ml/min (>60); GFR (African American) 143 ML/MIN (>60)
[2023-11-28 09:15] LABS: Albumin Level 3.2 g/dl (3.5-5.0); Albumin/Globulin Ratio 1.3 (1.1-1.8); Calcium 8.2 mg/dl (8.4-10.2); Globulin 2.4 g/dL (1.3-3.2); Glucose 120 mg/dl (74-100); Lipase 23 U/L (23-300); Total Protein,Serum 5.6 g/dl (6.3-8.2)
--- NOTE | 2023-11-28 09:15 | PC.NURSE ---
RAD at for CXR
[2023-11-28 09:34] LABS: Lactic Acid 1.3 mmol/L (0.7-2.1)
--- NOTE | 2023-11-28 09:47 | PC.NURSE ---
DR PAULA AT BEDSIDE TO UPDATE PT AND FAMILY ON POC
--- NOTE | 2023-11-28 10:06 | PC.NURSE ---
Rounded on pt. Pt provided with ice chips and assisted. Daughter remains at BS. No other needs voiced at this time.
--- NOTE | 2023-11-28 10:16 | PC.NURSE ---
call resp to let them know vbg was ordered and green jay was at lab
[2023-11-28 10:22] LABS: VBG Base Excess -2.3 mmol/L (-2.4-2.3); VBG HCO3 22.9 mmol/L (23-30); VBG Oxygen Saturation 94.4 % (50-70); VBG PCO2 39.8 mmol/L (35-51); VBG PH 7.38 mmol/L (7.31-7.41); VBG Total CO2 24.1 mmol/L (23-27)
[2023-11-28 11:04] LABS: Microscopic, Urine URINE MICROSCOPIC (MICROSCOPIC)
--- NOTE | 2023-11-28 11:04 | PC.NURSE ---
Pt incontinent of bladder. Pt brief changed, UA obtained via in and out cath. Pure wick placed. Pt assisted with ice chips. Call light within reach and no other needs voiced.
--- NOTE | 2023-11-28 11:12 | PC.NURSE ---
Dr. Kerr at BS to update family/pt on results and POC
[2023-11-28 11:49] LABS: Bilirubin,Urine Negative (Negative); Blood, Urine 1+ (Negative); Color,Urine YELLOW (Yellow); Glucose,Urine (UA) Negative (Negative); Ketones,Urine Negative (Negative); Leukocyte Esterase,Urine 2+ (Negative); Nitrate,Urine Negative (Negative); Protein,Urine TRACE (Negative)
[2023-11-28 12:02] LABS: Appearance,Urine Cloudy (Clear)
[2023-11-28 12:04] LABS: WBC,Urine TNTC #/hpf (0-3)
[2023-11-28 12:05] LABS: Bacteria,Urine 4+ /lpf
--- NOTE | 2023-11-28 12:16 | PC.NURSE ---
CALLED LAB TO MAKE SURE THEY HAD 2 SETS OF BLOOD CULTURE PRIOR TO STARTING ROCEPHIN AND THEY STATED YES. MARYELLEN SPANN AWARE.
[2023-11-28] MEDS: CEFTRIAXONE SODIUM 2 GM in 0.9 % SODIUM CHLORIDE 100 ML IV (12:18)
--- NOTE | 2023-11-28 12:24 | PC.NURSE ---
pt repositioned in bed placed on side to relieve pressure on bottom
[2023-11-28] MEDS: ACETAMINOPHEN 500MG TAB 1000 MG PO (13:20)
--- NOTE | 2023-11-28 13:20 | PC.NURSE ---
DR PAULA AT BEDSIDE TO UPDATE PT AND FAMILY
--- NOTE | 2023-11-28 13:28 | PC.NURSE ---
DR PAULA SPEAKING WITH DR CALIXTO
--- NOTE | 2023-11-28 13:30 | PC.NURSE ---
CHUTE GREASER NOTIFIED OF ADMISSION
--- NOTE | 2023-11-28 13:36 | EXP.HP ---
History of Present Illness *Admission Date: 11/28/23 *Reason for visit:: confusion *History of present illness: Ms. Rose is a pleasant 83-year-old female who is wheelchair dependent, has history of recurrent UTI, Sjogren's, Raynaud's, GERD, overactive bladder, hyperlipidemia, chronic pain. She is in the process of moving with her family to [place] and they report that over the past 3 days she has developed worsening confusion and weakness. Fever above 100 noted today. Some nausea and vomiting. Denies any shortness of breath, chest pain. Has had some mild abdominal pain. Had some shakes today per her daughter. EMS was called and gave the patient Zofran and 500 cc of fluid. On arrival to the ER she was alert and oriented to self. Workup in the ER initiated showing grossly abnormal urine. White cell count elevated at 11.2, kidney function normal at BUN of 11 and creatinine 0.5. Given patient's confusion, comorbidities, and UTI, requested admission for treatment of UTI with encephalopathy. Upon arrival to the floor, patient was evaluated. Feeling somewhat better after initiating antibiotics. Oriented to self and place. Family at bedside to help give history. Denies any CVA tenderness. [facility] Disclaimer: The information contained in this section may have been updated after the patient was seen, as this information can be updated by other users. Medical History (Updated 11/28/23 @ 18:35 by Hernán Correa MD) Acid reflux COPD (chronic obstructive pulmonary disease) Hyperlipidemia Osteoarthritis Raynaud disease Tobacco dependence in remission Surgical History H/O laminectomy History of appendectomy History of dilation and curettage History of total right knee replacement Family History Father Mother Coronary artery disease Father CHF (congestive heart failure) Mother Social History Smoking Status: Never smoker years smoked: 50 smoking status stop date: 2019 second hand exposure: Yes alcohol intake: never substance use type: denies use current occupational status: retired Travel in the last 8 weeks: None housing: house lives independently: No marital status: caffeine: Yes Meds Home Medications and Allergies Home Medications Medication Instructions Recorded Confirmed Type gabapentin 300 mg capsule 300 mg PO QID Pain #120 caps 10/31/23 11/28/23 Rx cyanocobalamin (vitamin B-12) 5,000 mcg PO DAILY Supplement 11/20/23 11/28/23 History 5,000 mcg disintegrating tablet melatonin 10 mg capsule 10 mg PO HSP PRN Sleep 11/20/23 11/28/23 History pravastatin 20 mg tablet 20 mg PO DAILY Cholesterol #90 tabs 11/20/23 11/28/23 Rx tolterodine 4 mg capsule,extended 4 mg PO DAILY overactive bladder 11/20/23 11/28/23 Rx release 24 hr #90 caps albuterol sulfate 90 mcg/actuation 1 puff inhalation QIDP PRN 11/28/23 11/28/23 History aerosol inhaler shortness of breath or wheezing cyclosporine 0.05 % eye drops 1 drp ophthalmic (eye) BIDP PRN 11/28/23 11/28/23 History (Restasis MultiDose) Dry Eyes meloxicam 7.5 mg tablet 7.5 mg PO BID Pain 11/28/23 11/28/23 History New Prescriptions to Start Prescriptions: Allergies Allergy/AdvReac Type Severity Reaction Status Date / Time No Known Allergies Allergy Verified 11/28/23 14:37 Exam Data for Last 24 hours Vital signs and Labs for Last 24 Hours: Temp Pulse Resp BP Pulse Ox O2 Del Method O2 Flow Rate 98 F 85 18 122/69 95 Room Air 2 11/28/23 08:49 11/28/23 13:00 11/28/23 12:00 11/28/23 13:00 11/28/23 13:00 11/28/23 13:00 11/28/23 11:37 Laboratory Results - last 24 hr 11/28/23 08:52: WBC 11.2 H, RBC 4.20, Hgb 12.4, Hct 38.2, MCV 91.0, MCH 29.5, MCHC 32.4, RDW 14.3, Plt Count 268, MPV 7.9, Neut % (Auto) 79.3, Lymph % (Auto) 12.0, [place] % (Auto) 8.0, Eos % (Auto) 0.4, Baso % (Auto) 0.2, Neut # (Auto) 8.9 H, Lymph # (Auto) 1.4, [place] # (Auto) 0.9, Eos # (Auto) 0.1, Baso # (Auto) 0.0, Sodium 133 L, Potassium 3.9, Chloride 104, Carbon Dioxide 26, Anion Gap 6.9, BUN 11, Creatinine 0.50 L, Estimated Creat Clear 63, Estimated GFR 118, Est GFR ( Amer) 143, Glucose 120 H, Lactate 1.3, Calcium 8.2 L, Total Bilirubin 0.4, AST 22, ALT 18, Alkaline Phosphatase 77, Total Protein 5.6 L, Albumin 3.2 L, Globulin 2.4, Albumin/Globulin Ratio 1.3, Lipase 23, SARS-CoV-2 (PCR) Not detected, Influenza A Untype (PCR) Not detected, Influenza Type B (PCR) Not detected 11/28/23 10:13: VBG pH 7.38, VBG pCO2 39.8, VBG pO2 73.0 H, VBG HCO3 22.9 L, VBG Total CO2 24.1, VBG O2 Saturation 94.4 H, VBG Base Excess -2.3 11/28/23 10:58: Urine Color Yellow, Urine Appearance Cloudy, Urine pH 6.0, Ur Specific [place] 1.020, Urine Protein Trace, Urine Glucose (UA) Negative, Urine Ketones Negative, Urine Blood 1+, Urine Nitrate Negative, Urine Bilirubin Negative, Urine Urobilinogen 1.0, Ur Leukocyte Esterase 2+ A, Urine RBC 5-10, Urine WBC Tntc, Ur Squamous Epith Cells 3-5, Urine Bacteria 4+ I & O for Last 24 hours: Intake & Output 11/25/23 11/26/23 11/27/23 11/28/23 23:59 23:59 23:59 23:59 Weight 92.986 kg Constitutional Constitutional: no acute distress, chronically ill appearing and cooperative *Routine HEENT Exam Head: Present normocephalic Eye: Present EOMI and PERRL ENT: Present mucous membranes moist *Routine Neck Exam Neck: Present supple, full ROM and trachea midline; Absent JVD *Routine Respiratory Exam Respiratory: Present rhonchi, normal respiratory effort and symmetric chest movement; Absent respiratory distress or wheezes *Routine Cardiovascular Exam Cardiovascular: Present RRR; Absent murmur *Routine Abdominal Exam Abdominal: Present soft and normoactive bowel sounds; Absent tenderness *Routine Rectal Exam Rectal:: deferred *Routine Genitalia Exam Genitalia:: deferred *Routine Extremities Exam Extremities: Present full ROM and pulses intact; Absent cyanosis, clubbing or edema Routine Back/Spine/Pelvis Exam Back/Spine: Absent CVA tenderness *Routine Skin Exam Skin: Present warm; Absent rash *Routine Neurological Exam Neurological: Present alert, vision grossly intact and hearing grossly intact; Absent sensory deficit or motor deficit Comments: Oriented to self and place, speech slightly slurred. Peripheral deficits in the legs, strength 1 out of 5 Routine Psychiatric Exam Psychiatric: Present normal affect, normal thought process, cooperative, good insight and good judgment Assessment and Plan *Assessment and plan (1) Encephalopathy: Status: Acute Category: Medical Code(s): G93.40 - Encephalopathy, unspecified (2) Acute UTI: Status: Acute Category: Medical Code(s): N39.0 - Urinary tract infection, site not specified (3) Sjogrens syndrome: Status: Chronic Category: Medical Code(s): M35.00 - Sjogren syndrome, unspecified (4) Raynauds syndrome: Status: Acute Category: Medical Code(s): I73.00 - Raynaud's syndrome without gangrene (5) Neuropathy: Status: Acute Category: Medical Code(s): G62.9 - Polyneuropathy, unspecified (6) Wheelchair dependence: Status: Chronic Category: Medical Code(s): Z99.3 - Dependence on wheelchair (7) Hyperlipidemia: Status: Acute Category: Medical Code(s): E78.5 - Hyperlipidemia, unspecified (8) COPD (chronic obstructive pulmonary disease): Status: Chronic Category: Medical Code(s): J44.9 - Chronic obstructive pulmonary disease, unspecified Plan Ms. Rose is a 83-year-old female with complex past medical history, wheelchair dependence. Presented to the ER with confusion. Workup concerning for encephalopathy and UTI. Discussed case with ER, request admission for IV antibiotics, monitoring of improvement mentation, and further management. Medicine agreed to admit. Encephalopathy UTI - Urine grossly abnormal with leuk esterase, nitrate, bacteria. White cell count elevated 11.2. In setting of confusion, was initiated on IV antibiotics. Will continue ceftriaxone 2 g daily. - Urine culture pending. - Pure wick in place given incontinence, holding home tolterodine for overactive bladder. - Repeat CBC, CMP, magnesium ordered for the morning. COPD: Continue albuterol as needed 4 times a day Hyperlipidemia: Continue home pravastatin 20 mg daily Neuropathy: Continue home gabapentin 300 mg 4 times a day History of Sjogren's and Raynaud's. Continue Restasis eyedrops twice daily as needed. No other condition specific treatment. Continue to monitor. Wheelchair dependence and immobility complicate all aspects of her care. PT and OT consulted to evaluate. Full code Regular diet Lovenox 40 mg subcu daily
--- NOTE | 2023-11-28 13:59 | HMH.PHAINT1 ---
Pharmacy Intervention Comments: MEDICATION RECONCILIATION COMPLETED ON PATIENT USING EXTERNAL FILL HISTORY FROM PHARMACY AND LIST FROM PCP OFFICE. -RADHA COHEN, CHERRID
--- NOTE | 2023-11-28 14:01 | PC.NURSE ---
ATTEMPTED TO GIVE REPORT TO THERESA AT THIS TIME
--- NOTE | 2023-11-28 14:06 | PC.NURSE ---
REPORT CALLED TO WARREN MARQUEZ
[2023-11-28 14:17] LABS: Ammonia < 9 umol/L (9-30)
--- NOTE | 2023-11-28 14:25 | PC.NURSE ---
arrived by stretcher from ED
[2023-11-28] MEDS: GABAPENTIN 300MG CAPSULE 300 MG PO (20:00)
[2023-11-28] MEDS: ACETAMINOPHEN 325MG TAB 650 MG PO (20:04)
[2023-11-29 04:00] VITALS: BP 134/66; PULSE 90; RESP 18; TEMP 36.3; O2SAT 94; BMI 28.1
--- NOTE | 2023-11-29 05:11 | PC.NURSE ---
confused t/o night, on 2lnc.
[2023-11-29 08:00] VITALS: BP 137/72; PULSE 92; RESP 18; TEMP 36.7; O2SAT 95
--- NOTE | 2023-11-29 08:05 | EXP.ACUTE.PN ---
Subjective *Date: 11/29/23 *Time: 11:49 Interval history: Patient feeling better this morning. Afebrile. No nausea or vomiting. Denies shortness of breath or chest pain. Alert and oriented x 4. Asked me why are you asking me these questions legs still sore, this is not new. Pleasant and interactive on exam Medical Exam Vital signs and Labs for Last 24 Hours: Vital Signs Temp Pulse Pulse Resp BP BP Pulse Ox 11/29/23 06:15 11/29/23 05:00 11/29/23 03:00 11/29/23 04:00 97.3 F L 90 18 134/66 94 L 11/29/23 00:59 11/28/23 23:00 11/28/23 22:12 98.4 F 81 18 122/67 92 L 11/28/23 21:00 11/28/23 20:00 11/28/23 17:24 11/28/23 16:00 97.7 F 80 20 113/43 L 96 11/28/23 15:32 11/28/23 15:11 98 11/28/23 14:44 97.7 F 78 18 100/60 L 98 11/28/23 14:00 78 101/70 L 97 11/28/23 14:08 97.5 F L 80 18 101/70 L 11/28/23 13:30 85 18 106/71 L 96 11/28/23 13:00 85 122/69 95 11/28/23 12:30 84 113/62 94 L 11/28/23 12:00 91 H 18 101/57 L 96 11/28/23 11:37 87 93/50 L 92 L 11/28/23 11:02 88 115/65 96 11/28/23 10:30 92 H 18 107/59 L 94 L 11/28/23 10:02 92 H 95/49 L 95 11/28/23 09:20 86 101/58 L 96 11/28/23 08:49 98 F 98 H 18 122/63 90 L O2 Del Method O2 Flow Rate 11/29/23 06:15 Nasal Cannula 2 11/29/23 05:00 Nasal Cannula 2 11/29/23 03:00 Nasal Cannula 2 11/29/23 04:00 Room Air 11/29/23 00:59 Nasal Cannula 2 11/28/23 23:00 Nasal Cannula 2 11/28/23 22:12 Nasal Cannula 3 11/28/23 21:00 Nasal Cannula 2 11/28/23 20:00 Nasal Cannula 2 11/28/23 17:24 Room Air 11/28/23 16:00 Nasal Cannula 3 11/28/23 15:32 Nasal Cannula 2 11/28/23 15:11 Nasal Cannula 2 11/28/23 14:44 Nasal Cannula 3 11/28/23 14:00 Room Air 11/28/23 14:08 Room Air 11/28/23 13:30 11/28/23 13:00 Room Air 11/28/23 12:30 Room Air 11/28/23 12:00 11/28/23 11:37 Nasal Cannula 2 11/28/23 11:02 Nasal Cannula 11/28/23 10:30 11/28/23 10:02 Nasal Cannula 2 11/28/23 09:20 Nasal Cannula 2 11/28/23 08:49 Room Air Intake and Output 11/28/23 11/29/23 11/29/23 23:59 07:59 15:59 Intake Total 240 / 360 120 / 120 Output Total 500 / 500 Balance 240 / 360 -380 / -380 Intake: Intake, Oral Amount 240 / 360 120 / 120 Output: Output, Urine Amount 500 / 500 Other: Weight 86.239 kg Patient Weight 11/29/23 23:59 Weight 86.239 kg Laboratory Results - last 24 hr 11/28/23 08:52: WBC 11.2 H, RBC 4.20, Hgb 12.4, Hct 38.2, MCV 91.0, MCH 29.5, MCHC 32.4, RDW 14.3, Plt Count 268, MPV 7.9, Neut % (Auto) 79.3, Lymph % (Auto) 12.0, [place] % (Auto) 8.0, Eos % (Auto) 0.4, Baso % (Auto) 0.2, Neut # (Auto) 8.9 H, Lymph # (Auto) 1.4, [place] # (Auto) 0.9, Eos # (Auto) 0.1, Baso # (Auto) 0.0, Sodium 133 L, Potassium 3.9, Chloride 104, Carbon Dioxide 26, Anion Gap 6.9, BUN 11, Creatinine 0.50 L, Estimated Creat Clear 63, Estimated GFR 118, Est GFR ( Amer) 143, Glucose 120 H, Lactate 1.3, Calcium 8.2 L, Total Bilirubin 0.4, AST 22, ALT 18, Alkaline Phosphatase 77, Total Protein 5.6 L, Albumin 3.2 L, Globulin 2.4, Albumin/Globulin Ratio 1.3, Lipase 23, SARS-CoV-2 (PCR) Not detected, Influenza A Untype (PCR) Not detected, Influenza Type B (PCR) Not detected 11/28/23 10:13: VBG pH 7.38, VBG pCO2 39.8, VBG pO2 73.0 H, VBG HCO3 22.9 L, VBG Total CO2 24.1, VBG O2 Saturation 94.4 H, VBG Base Excess -2.3 11/28/23 10:58: Urine Color Yellow, Urine Appearance Cloudy, Urine pH 6.0, Ur Specific [place] 1.020, Urine Protein Trace, Urine Glucose (UA) Negative, Urine Ketones Negative, Urine Blood 1+, Urine Nitrate Negative, Urine Bilirubin Negative, Urine Urobilinogen 1.0, Ur Leukocyte Esterase 2+ A, Urine RBC 5-10, Urine WBC Tntc, Ur Squamous Epith Cells 3-5, Urine Bacteria 4+ 11/28/23 14:03: Ammonia < 9 L I & O for Labs for Last 24 Hours: Intake & Output 11/26/23 11/27/23 11/28/23 11/29/23 23:59 23:59 23:59 23:59 Intake Total 240 / 360 120 / 120 Output Total 500 / 500 Balance 240 / 360 -380 / -380 Weight 86.239 kg 86.239 kg Constitutional: Present no acute distress, average body habitus, chronically ill appearing and cooperative Head: Present atraumatic and normocephalic ENT: Present normal exam Respiratory: Present normal respiratory effort; Absent rhonchi, wheezes or crackles Cardiac: Present Reg Rate and Rhythm GI: Present normal bowel sounds; Absent tenderness Extremities: Present normal inspection and full ROM Skin: Present intact; Absent erythema Neuro: Present Grossly Intact, alert, awake, oriented x 3 and moves all extremities Comment:: Deficits in lower extremities. Wheelchair dependent Assessment and Plan *Assessment and plan (1) Encephalopathy: Status: Acute Category: Medical Code(s): G93.40 - Encephalopathy, unspecified (2) Acute UTI: Status: Acute Category: Medical Code(s): N39.0 - Urinary tract infection, site not specified (3) Sjogrens syndrome: Status: Chronic Category: Medical Code(s): M35.00 - Sjogren syndrome, unspecified (4) Raynauds syndrome: Status: Acute Category: Medical Code(s): I73.00 - Raynaud's syndrome without gangrene (5) Neuropathy: Status: Acute Category: Medical Code(s): G62.9 - Polyneuropathy, unspecified (6) Wheelchair dependence: Status: Chronic Category: Medical Code(s): Z99.3 - Dependence on wheelchair (7) Hyperlipidemia: Status: Acute Category: Medical Code(s): E78.5 - Hyperlipidemia, unspecified (8) COPD (chronic obstructive pulmonary disease): Status: Chronic Category: Medical Code(s): J44.9 - Chronic obstructive pulmonary disease, unspecified Plan Ms. Rose is a 83-year-old female with complex past medical history, wheelchair dependence. Presented to the ER with confusion. Workup concerning for encephalopathy and UTI. Discussed case with ER, request admission for IV antibiotics, monitoring of improvement mentation, and further management. Improving mentation. Pleased with improvement, transition to Levaquin today. Dissipate discharge tomorrow. Problems addressed as follows: Encephalopathy UTI - Urine grossly abnormal with leuk esterase, nitrate, bacteria. White cell count improved to 8.6 today, mentation improving. Transition to levofloxacin 750 mg daily. Urine culture pending. - Pure wick in place given incontinence, holding home tolterodine for overactive bladder. - Repeat CBC, CMP, magnesium ordered for the morning. COPD: Continue albuterol as needed 4 times a day Hyperlipidemia: Continue home pravastatin 20 mg daily Neuropathy: Continue home gabapentin 300 mg 4 times a day History of Sjogren's and Raynaud's. Continue Restasis eyedrops twice daily as needed. No other condition specific treatment. Continue to monitor. Wheelchair dependence and immobility complicate all aspects of her care. PT and OT consulted to evaluate. Full code Regular diet Lovenox 40 mg subcu daily
[2023-11-29 08:16] LABS: Chloride 104 mmol/L (98-107); Potassium 3.6 mmoL/L (3.5-5.1); Sodium 135 mmol/L (136-145)
[2023-11-29 08:18] LABS: Alanine Aminotransferase 15 U/L (12-78); Aspartate Amino Transferase 22 U/L (14-36); Blood Urea Nitrogen 10 mg/dl (7-17); Creatinine Clearance Estimated 58 mL/min (50-200); Estimated Glomerular Filt Rate 152 ml/min (>60); GFR (African American) 184 ML/MIN (>60)
[2023-11-29 08:19] LABS: Albumin Level 3.4 g/dl (3.5-5.0); Albumin/Globulin Ratio 1.3 (1.1-1.8); Alkaline Phosphatase 82 U/L (38-126); Anion Gap 4.6 mEq/L (5-15); Bilirubin,Total 0.3 mg/dl (0.2-1.3); Calcium 8.6 mg/dl (8.4-10.2); Carbon Dioxide 30 mmol/L (22.0-30.0); Globulin 2.6 g/dL (1.3-3.2); Glucose 98 mg/dl (74-100); Magnesium 1.9 mg/dl (1.6-2.3)
[2023-11-29 08:37] LABS: Basophils % 0.3 % (0.1-2.0); Eosinophils # 0.1 K/mm3 (0.0-0.4); Eosinophils % 0.8 % (0.1-12.0); Hematocrit 40.1 % (37.0-47.0); Hemoglobin 12.5 g/dL (12.2-16.2); Lymphocytes # 1.2 K/mm3 (0.7-4.5); Lymphocytes % 13.8 % (10-50); Mean Corpuscular HGB Conc 31.3 g/dL (31.8-35.4); Mean Corpuscular Hemoglobin 28.4 pg (27.0-31.2); Mean Platelet Volume 8.3 fl (7.4-10.4); Monocytes # 0.7 K/mm3 (0.1-1.0); Monocytes % 8.4 % (1.7-9.3); Neutrophils # 6.6 K/mm3 (1.8-7.8); Neutrophils % 76.7 % (37.0-80.0); Platelet Count 274 K/mm3 (142-424); Red Cell Distribution Width 14.4 % (11.5-17.5); White Blood Count 8.6 K/mm3 (4.8-10.8)
[2023-11-29] MEDS: ENOXAPARIN 40MG/0.4ML SYRINGE 40 MG SQ (09:21)
[2023-11-29] MEDS: PRAVASTATIN 20MG TAB 20 MG PO (09:21)
[2023-11-29] MEDS: GABAPENTIN 300MG CAPSULE 300 MG PO ×4 (09:21→20:26)
[2023-11-29] MEDS: levoFLOXacin 750 MG TABLET PO (12:36)
--- NOTE | 2023-11-29 14:16 | HMH.PTEV ---
Physical Therapy Evaluation Rehab PT IP Evaluation Start: 11/28/23 18:32 Freq: ONCE Status: Active Protocol: Document 11/29/23 14:08 SAM (Rec: 11/29/23 14:16 SAM [id number]) Subjective/History History History Ms. Rose is a pleasant 83 -year-old female who is wheelchair dependent, has history of recurrent UTI, Sjogren's, Raynaud's, GERD, overactive bladder, hyperlipidemia, chronic pain. She is in the process of moving with her family to [place] and they report that over the past 3 days she has developed worsening confusion and weakness. Fever above 100 noted today. Some nausea and vomiting. Denies any shortness of breath, chest pain. Has had some mild abdominal pain. Had some shakes today per her daughter. On arrival to the ER she was alert and oriented to self. Workup in the ER initiated showing grossly abnormal urine . White cell count elevated at 11.2, kidney function normal at BUN of 11 and creatinine 0. 5. Given patient's confusion, comorbidities, and UTI, requested admission for treatment of UTI with encephalopathy. Patient wheelchair bound for transport secondary to difficulties after R TKA. Patient lives with her daughter currently, where she requires help with all ADL's/IADL's. Subjective Subjective I can't stand because of this botched knee surgery. Rehab PT IP Eval Objective Appearance Patient Behavior Appropriate,Cooperative Patient Orientation Person,Place,Birthday Difficulty following instructions none Speech Pattern Clear,Appropriate Ambulation Patient Able to Ambulate No Balance Ability to Arise Unable Sitting Balance Steady, safe Dynamic Sitting Balance Ability Normal Transfers Bed Transfer Ability Minimal x 2 (25% assist) Pain Right Knee Pain Intensity 6 ROM All Extremities PT ROM Status ABN Abnormal ROM Comment All WFL except for RLE ltd knee flx/ext MMT All Extremities PT MMT ABN Abnormal MMT Grade 3/5 grossly Rehab PT IP prob,goals,plan Problems Date of Evaluation: 11/29/23 PT IP Problems Bed Mobility,Transfers,Gait, Balance,Self care,Safety Rehab Potential Rehab Potential Fair Plan PT Intervention Plan Bed Mobility,Transfers,Gait, Balance,Self care,Safety, Therapeutic Exercise PT Plan Frequency Daily Duration LOS Discharge Goals Bed Transfer Ability Minimal x 1 (25% assist) Discharge Plan PT Discharge Plan Patient appears to be currently at baseline. PT suggests that patient get set up with home health for further rehab once found medically stable by MD, after moving to [place]. Eval Complexity Eval Charge Codes 90527 - High Complexity PHYSICIAN CERTIFICATION: I certify the specified therapy services for December [facility] are required, authorized, and reviewed every 30 days.
[2023-11-29] MEDS: ACETAMINOPHEN 325MG TAB 650 MG PO ×2 (15:54→20:26)
[2023-11-29 16:00] VITALS: BP 104/68; PULSE 85; RESP 17; TEMP 36.6; O2SAT 95
--- NOTE | 2023-11-29 18:15 | PC.NURSE ---
PT MORE ALERT AND ABLE TO ANSWER QUESTIONS APPROPRIATELY MOST OF THE TIME. HAS SOME INTERMITTENT EPISODES OF CONFUSION. PT HAS TOLERATED ROOM AIR WELL TODAY.
[2023-11-29 20:00] VITALS: BP 114/61; PULSE 78; RESP 18; TEMP 36.9; O2SAT 95
[2023-11-29] MEDS: MELATONIN 5MG TABLET 10 MG PO (20:27)
--- NOTE | 2023-11-30 03:28 | PC.NURSE ---
Pt is alert and oriented x4 no confusion noted, Pt is currently tolerating RA well. Pt is a q2 turn but had refused every other turn she states that she is comfortable. Pt legs are elevated on large pillow from home. Pt urine output is 1200 thus far this shift, urine is slightly clouding but improved. Pt has C/O mild pain and has been treated per MAR. Pt denies needs and pain at this time
[2023-11-30 04:00] VITALS: BP 137/73; PULSE 84; RESP 18; TEMP 36.4; O2SAT 97; BMI 28.1
--- NOTE | 2023-11-30 07:16 | EXP.DC.SUM ---
General Admission date:: 11/28/23 Discharge date: 11/30/23 HPI HPI HPI: Ms. Rose is a pleasant 83-year-old female who is wheelchair dependent, has history of recurrent UTI, Sjogren's, Raynaud's, GERD, overactive bladder, hyperlipidemia, chronic pain. She is in the process of moving with her family to [place] and they report that over the past 3 days she has developed worsening confusion and weakness. Fever above 100 noted today. Some nausea and vomiting. Denies any shortness of breath, chest pain. Has had some mild abdominal pain. Had some shakes today per her daughter. EMS was called and gave the patient Zofran and 500 cc of fluid. On arrival to the ER she was alert and oriented to self. Workup in the ER initiated showing grossly abnormal urine. White cell count elevated at 11.2, kidney function normal at BUN of 11 and creatinine 0.5. Given patient's confusion, comorbidities, and UTI, requested admission for treatment of UTI with encephalopathy. Upon arrival to the floor, patient was evaluated. Feeling somewhat better after initiating antibiotics. Oriented to self and place. Family at bedside to help give history. Denies any CVA tenderness. Hospital Course Hospital Course Hospital Course: Ms. Rose is a 83-year-old female with complex past medical history, wheelchair dependence. Presented to the ER with confusion. Workup concerning for encephalopathy and UTI. Discussed case with ER, request admission for IV antibiotics, monitoring of improvement mentation, and further management. Improving mentation. Pleased with improvement, patient transitioned to levofloxacin for ease of dosing at discharge. Stable to discharge home today with family. Strongly encouraged her to find new PCP when she gets to [place] as soon as possible. Problems addressed during hospitalization as follows: Encephalopathy, resolved UTI - Urine grossly abnormal with leuk esterase, nitrate, bacteria. White cell count elevated on admission, normalized with initiation of treatment. Patient was transitioned to levofloxacin 750 mg daily. Will complete a 7-day course of antibiotics. Her previous UTIs documented in our facility have included Serratia, E. coli, Klebsiella. All pathogen sensitive to sherly quinolones. Appears to have had a UTI approximately yearly with most recent one 7 months ago. Denying any burning or discomfort. Holding her tolterodine during admission, okay to resume after discharge. Of note: Urine culture still pending at discharge COPD: Continue albuterol as needed 4 times a day Hyperlipidemia: Continue home pravastatin 20 mg daily Neuropathy: Continue home gabapentin 300 mg 4 times a day History of Sjogren's and Raynaud's. Continue Restasis eyedrops twice daily as needed. No other condition specific treatment. Continue to monitor. Wheelchair dependence and immobility complicate all aspects of her care. Evaluated by therapy during admission, stable for discharge with her assistive devices. Exam Data for Last 24 hours Vital signs and Labs for Last 24 Hours: Temp Pulse Resp BP Pulse Ox O2 Del Method O2 Flow Rate 97.5 F L 84 18 137/73 97 Room Air 2 11/30/23 04:00 11/30/23 04:00 11/30/23 04:00 11/30/23 04:00 11/30/23 04:00 11/30/23 05:00 11/29/23 11:00 Laboratory Results - last 24 hr 11/29/23 06:33: WBC 8.6, RBC 4.40, Hgb 12.5, Hct 40.1, MCV 91.0, MCH 28.4, MCHC 31.3 L, RDW 14.4, Plt Count 274, MPV 8.3, Neut % (Auto) 76.7, Lymph % (Auto) 13.8, Mcmullen % (Auto) 8.4, Eos % (Auto) 0.8, Baso % (Auto) 0.3, Neut # (Auto) 6.6, Lymph # (Auto) 1.2, Mcmullen # (Auto) 0.7, Eos # (Auto) 0.1, Baso # (Auto) 0.0, Sodium 135 L, Potassium 3.6, Chloride 104, Carbon Dioxide 30, Anion Gap 4.6 L, BUN 10, Creatinine 0.40 L, Estimated Creat Clear 58, Estimated GFR 152, Est GFR ( Amer) 184 D, Glucose 98, Calcium 8.6, Magnesium 1.9, Total Bilirubin 0.3, AST 22, ALT 15, Alkaline Phosphatase 82, Total Protein 6.0 L, Albumin 3.4 L, Globulin 2.6, Albumin/Globulin Ratio 1.3 I & O for Last 24 hours: Intake & Output 11/27/23 11/28/23 11/29/23 11/30/23 23:59 23:59 23:59 23:59 Intake Total 240 / 360 600 / 720 120 / 120 Output Total 1300 / 1300 1200 / 1200 Balance 240 / 360 -700 / -580 -1080 / -1080 Weight 86.239 kg 86.239 kg 86.324 kg Constitutional Constitutional: no acute distress, average body habitus, chronically ill appearing and cooperative *Routine HEENT Exam Head: Present normocephalic Eye: Present EOMI and PERRL ENT: Present mucous membranes moist *Routine Neck Exam Neck: Present supple; Absent lymphadenopathy *Routine Respiratory Exam Respiratory: Present CTA bilaterally; Absent rhonchi, wheezes or crackles *Routine Cardiovascular Exam Cardiovascular: Present RRR *Routine Abdominal Exam Abdominal: Present soft and normoactive bowel sounds; Absent tenderness *Routine Rectal Exam Patient deferred: visual exam *Routine Exam Patient deferred: external exam *Routine Extremities Exam Extremities: Absent cyanosis, clubbing or edema *Routine Skin Exam Skin: Present warm; Absent rash *Routine Neurological Exam Neurological: Present alert, oriented X3 and moving all extremities; Absent altered mental status Comments: Weakness in legs, strength 2/5. Chronic deficit. Routine Psychiatric Exam Psychiatric: Present normal affect and cooperative Results Data Completed and Pending Labs on day of discharge: Labs from last 24 hours 11/29/23 06:33 WBC 8.6 RBC 4.40 Hgb 12.5 Hct 40.1 MCV 91.0 MCH 28.4 MCHC 31.3 L RDW 14.4 Plt Count 274 MPV 8.3 Neut % (Auto) 76.7 Lymph % (Auto) 13.8 Mcmullen % (Auto) 8.4 Eos % (Auto) 0.8 Baso % (Auto) 0.3 Neut # (Auto) 6.6 Lymph # (Auto) 1.2 Mcmullen # (Auto) 0.7 Eos # (Auto) 0.1 Baso # (Auto) 0.0 Sodium 135 L Potassium 3.6 Chloride 104 Carbon Dioxide 30 Anion Gap 4.6 L BUN 10 Creatinine 0.40 L Estimated Creat Clear 58 Estimated GFR 152 Est GFR ( Amer) 184 D Glucose 98 Calcium 8.6 Magnesium 1.9 Total Bilirubin 0.3 AST 22 ALT 15 Alkaline Phosphatase 82 Total Protein 6.0 L Albumin 3.4 L Globulin 2.6 Albumin/Globulin Ratio 1.3 DS: Diagnosis Discharge Diagnosis (1) Encephalopathy: Status: Resolved Code(s): G93.40 - Encephalopathy, unspecified (2) Acute UTI: Status: Acute Code(s): N39.0 - Urinary tract infection, site not specified (3) Sjogrens syndrome: Status: Chronic Code(s): M35.00 - Sjogren syndrome, unspecified (4) Raynauds syndrome: Status: Acute Code(s): I73.00 - Raynaud's syndrome without gangrene (5) Neuropathy: Status: Acute Code(s): G62.9 - Polyneuropathy, unspecified (6) Wheelchair dependence: Status: Chronic Code(s): Z99.3 - Dependence on wheelchair (7) Hyperlipidemia: Status: Acute Code(s): E78.5 - Hyperlipidemia, unspecified (8) COPD (chronic obstructive pulmonary disease): Status: Chronic Code(s): J44.9 - Chronic obstructive pulmonary disease, unspecified Meds Home Medications and Allergies Home Medications Medication Instructions Recorded Confirmed Type gabapentin 300 mg capsule 300 mg PO QID Pain #120 caps 10/31/23 11/28/23 Rx cyanocobalamin (vitamin B-12) 5,000 mcg PO DAILY Supplement 11/20/23 11/28/23 History 5,000 mcg disintegrating tablet melatonin 10 mg capsule 10 mg PO HSP PRN Sleep 11/20/23 11/28/23 History pravastatin 20 mg tablet 20 mg PO DAILY Cholesterol #90 tabs 11/20/23 11/28/23 Rx tolterodine 4 mg capsule,extended 4 mg PO DAILY overactive bladder 11/20/23 11/28/23 Rx release 24 hr #90 caps albuterol sulfate 90 mcg/actuation 1 puff inhalation QIDP PRN 11/28/23 11/28/23 History aerosol inhaler shortness of breath or wheezing cyclosporine 0.05 % eye drops 1 drp ophthalmic (eye) BIDP PRN 11/28/23 11/28/23 History (Restasis MultiDose) Dry Eyes meloxicam 7.5 mg tablet 7.5 mg PO BID Pain 11/28/23 11/28/23 History levofloxacin 750 mg tablet 750 mg PO DAILY 5 days #5 tabs 11/29/23 Rx New Prescriptions to Start Prescriptions: levofloxacin Hernán Correa Allergies Allergy/AdvReac Type Severity Reaction Status Date / Time No Known Allergies Allergy Verified 11/28/23 14:37 Discharge Plan Disposition Patient Disposition: Home, Self-Care Condition: Fair Discharge Order Discharge Orders: Discharge Order (Routine); Ordered 11/30/23 Ordered By: Hernán Correa Follow up Plan Prescriptions/Medication Reconciliation: New levofloxacin 750 mg tablet 750 mg PO DAILY 5 Days Qty: 5 0RF Continued gabapentin 300 mg capsule 300 mg PO QID Qty: 120 3RF cyanocobalamin (vitamin B-12) 5,000 mcg tablet,disintegrating 5,000 mcg PO DAILY melatonin 10 mg capsule 10 mg PO HSP PRN (Reason: Sleep) pravastatin 20 mg tablet 20 mg PO DAILY Qty: 90 3RF tolterodine 4 mg capsule,extended release 24hr 4 mg PO DAILY Qty: 90 3RF meloxicam 7.5 mg tablet 7.5 mg PO BID albuterol sulfate 90 mcg/actuation HFA aerosol inhaler 1 puff inhalation QIDP PRN (Reason: shortness of breath or wheezing) Restasis MultiDose 0.05 % drops 1 drp ophthalmic (eye) BIDP PRN (Reason: Dry Eyes) Problem Reconciliation Problems Reviewed?: Yes Patient Discharge Instructions ACTIVITY: Continue current activity DIET: continue same diet Additional Instructions: Patient is actively in the process of moving to [place]. Will be discharging from the hospital and traveling with her daughter to [place]. Encouraged her to establish with a new PCP soon as possible for routine follow-up and further management. Patient Instructions: Urinary Tract Infection, DI for Pneumonia -- Adult, DI for Urinary Tract Infection (UTI), Encephalopathy, DI for Encephalopathy, DI for Altered Mental Status Providers Primary Care Provider: Erasmo Hadley Admit Provider: Hernán Correa Attending Provider: Hernán Correa
[2023-11-30 07:49] LABS: Basophils % 0.6 % (0.1-2.0); Eosinophils # 0.1 K/mm3 (0.0-0.4); Eosinophils % 1.5 % (0.1-12.0); Hematocrit 41.6 % (37.0-47.0); Hemoglobin 13.3 g/dL (12.2-16.2); Lymphocytes # 1.1 K/mm3 (0.7-4.5); Lymphocytes % 19.1 % (10-50); Mean Corpuscular Hemoglobin 28.9 pg (27.0-31.2); Mean Corpuscular Volume 90.3 fl (81-99); Mean Platelet Volume 8.3 fl (7.4-10.4); Monocytes # 0.6 K/mm3 (0.1-1.0); Monocytes % 9.4 % (1.7-9.3); Neutrophils % 69.4 % (37.0-80.0); Platelet Count 277 K/mm3 (142-424); Red Blood Count 4.61 M/mm3 (4.20-5.40); Red Cell Distribution Width 14.2 % (11.5-17.5); White Blood Count 5.8 K/mm3 (4.8-10.8)
[2023-11-30 07:50] LABS: Chloride 104 mmol/L (98-107); Potassium 3.8 mmoL/L (3.5-5.1); Sodium 136 mmol/L (136-145)
[2023-11-30 07:53] LABS: Anion Gap 5.8 mEq/L (5-15); Blood Urea Nitrogen 8 mg/dl (7-17); Calcium 8.9 mg/dl (8.4-10.2); Carbon Dioxide 30 mmol/L (22.0-30.0); Creatinine Clearance Estimated 58 mL/min (50-200); Estimated Glomerular Filt Rate 152 ml/min (>60); GFR (African American) 184 ML/MIN (>60); Glucose 95 mg/dl (74-100)
[2023-11-30 08:00] VITALS: BP 132/66; PULSE 78; RESP 20; TEMP 36.6; O2SAT 95
[2023-11-30] MEDS: ENOXAPARIN 40MG/0.4ML SYRINGE 40 MG SQ (08:26)
[2023-11-30] MEDS: GABAPENTIN 300MG CAPSULE 300 MG PO (08:26)
[2023-11-30] MEDS: PRAVASTATIN 20MG TAB 20 MG PO (08:26)
--- NOTE | 2023-12-02 12:57 | CARE MANAGER ---
Addendum entered by Lizett Houston RN 12/02/23 13:01: Patient called back. States that she has her antibiotic and denies any questions or concerns. No follow up appointment made as patient moving to [place] with daughter. Original Note: Attempted to contact patient x2 related to hospital discharge. Left VM message. WARREN Centeno
== END 2023-11-30 10:42 | disposition home or self-care (01) ==
LOC: ER 10:03 → 2ND 14:09
PROVIDERS: Admitting Provider Internal Medicine Adolescent Medicine; Emergency Provider Emergency Medicine; PCP Internal Medicine; Visit Provider Internal Medicine Adolescent Medicine
DX: G93.40 Encephalopathy, unspecified (principal); N39.0 Urinary tract infection, site not specified; M35.00 Sjogren syndrome, unspecified; I73.00 Raynaud's syndrome without gangrene; G62.9 Polyneuropathy, unspecified; Z99.3 Dependence on wheelchair; E78.5 Hyperlipidemia, unspecified; J44.9 Chronic obstructive pulmonary disease, unspecified; Z79.899 Other long term (current) drug therapy; Z87.891 Personal history of nicotine dependence; R05.3 Chronic cough
CPT/HCPCS: 36415; 71045; 80048; 80053; 81001; 82140; 82803; 83605; 83690; 83735; 85025; 87040; 87086; 87636; 97163; 99285; G0378; J0696